=== PATIENT | male | born 1945 | race Caucasian/White ===

== ENCOUNTER 2020-06-23 17:50 | Inpatient (IN) ==
[2020-06-23] MEDS ORDERED: 0.9 % SODIUM CHLORIDE 1,000 ML IV ONE (18:04)
[2020-06-23] MEDS ORDERED: POTASSIUM CHLORIDE 20 MEQ in DEXTROSE 5% IN WATER 250 ML IV ONE (18:04)
[2020-06-23] MEDS ORDERED: POTASSIUM CHLORIDE 20 MEQ TABLET PO ONE (18:04)
--- NOTE | 2020-06-23 18:06 | Emergency Department Note ---
HPI General Chief complaint: Weakness Stated complaint: electrolye imbalances, frequent falls Time Seen by Provider: 06/23/20 17:55 Source: patient Mode of arrival: ambulatory Limitations: no limitations History of Present Illness HPI Narrative: Narrative: 74-year-old male presents the emergency department complaining of generalized weakness. Blanca Brewer with urology actually called us and let them know that the patient was coming here due to lab abnormalities. She said he had a low sodium as well as a low potassium and with the weakness felt like he need to be admitted. He was actually here about a week and a half ago was offered admission but actually declined and signed out AMA. He has discontinued it weaker and weaker. He had a Killian catheter placed 3 days ago secondary urinary retention which is normal for him to urology they said that his urine looks fine there is no signs of infection. Denying any other symptoms otherwise. Just generalized weakness including frequent falls. Says he has not lost consciousness does not believe he hit his head but he does take Plavix. Otherwise no other blood thinners. Related Data Home Medications Medication Instructions Recorded Confirmed albuterol sulfate 1 puff INH Q4-6HP PRN 12/27/14 06/23/20 atorvastatin 40 mg PO HS 12/29/14 06/23/20 cyanocobalamin (vitamin B-12) 500 mcg PO DAILY 12/29/14 06/23/20 fluticasone propionate 2 spray NS DAILY 12/29/14 06/23/20 mirtazapine 30 mg PO HS 12/29/14 06/23/20 acetaminophen 500 mg tablet 1,000 mg PO QID PRN 01/16/19 06/23/20 amitriptyline 100 mg tablet 100 mg PO QHS 01/16/19 06/23/20 aspirin 81 mg tablet,delayed 81 mg PO QDAY 01/16/19 06/23/20 release benztropine 0.5 mg tablet 0.5 mg PO BID 01/16/19 06/23/20 furosemide 20 mg tablet 20 mg PO QAM 01/16/19 06/23/20 hydrochlorothiazide 12.5 mg tablet 12.5 mg PO QAM tab 01/16/19 06/23/20 melatonin 3 mg capsule 6 mg PO HS cap 01/16/19 06/23/20 montelukast 10 mg tablet 10 mg PO QPM 01/16/19 06/23/20 multivitamin See Rx Instructions PO QDAY 01/16/19 06/23/20 pantoprazole 40 mg tablet,delayed 40 mg PO BID 01/16/19 06/23/20 release risperidone 3 mg tablet 3 mg PO QHS 01/16/19 06/23/20 sennosides 8.6 mg tablet 8.6 mg PO BID 01/16/19 06/23/20 tiotropium bromide 2.5 2 puff INHALATION QDAY 01/16/19 06/23/20 mcg/actuation mist for inhalation clopidogrel 75 mg tablet 75 mg PO QAM tab 03/27/19 06/23/20 pregabalin 100 mg capsule 100 mg PO TID 03/27/19 06/23/20 lisinopril 5 mg tablet 2.5 mg PO QAM tab 12/03/19 06/23/20 Previous Rx's Medication Instructions Recorded folic acid 1 mg PO DAILY #30 tab 01/07/15 methocarbamol 750 mg PO TIDP PRN #15 tab 01/05/19 miconazole nitrate 2 % topical 1 applic TOPICAL QDAY #57 g 02/28/19 cream miconazole nitrate 2 % topical 1 applic TOPICAL BID #30 g 12/05/19 cream albuterol sulfate 2.5 mg INHALATION TID PRN #180 ml 01/07/20 budesonide-formoterol HFA 160 2 puff INHALATION BID #10.2 g 01/07/20 mcg-4.5 mcg/actuation aerosol inhaler finasteride 5 mg tablet 5 mg PO QDAY #90 tab 03/19/20 tamsulosin 0.4 mg capsule 0.4 mg PO QHS #30 cap 06/19/20 Allergies Allergy/AdvReac Type Severity Reaction Status Date / Time aspirin [ASPIRIN] AdvReac Severe INTOLERANCE Verified 06/23/20 17:54 ONLY D/T ULCERS hydrocodone [HYDROCODONE] AdvReac Mild Sedation Verified 06/23/20 17:54 methadone [METHADONE] AdvReac Mild HALLUCINATI Verified 06/23/20 17:54 ONS morphine [MORPHINE] AdvReac Mild ITCHING Verified 06/23/20 17:54 oxycodone AdvReac Mild itchy Verified 06/23/20 17:54 Review of Systems ROS ROS Narrative: Narrative: All systems ED: reviewed and negative except as stated. PFSH Narrative Patient History Narrative: Narrative: Medical/Surgical/Family History All Active Problems (Updated 06/23/20 @ 19:04 by Yadiel Diaz DO) Acute hyponatremia (Acute) Weakness (Acute) Hypokalemia (Acute) Abnormal urinary stream (Acute) Urinary retention due to benign prostatic hyperplasia (Acute) General medical examination (Acute) Acute hypokalemia (Acute) Acute hypotension (Acute) Near syncope (Acute) BPH (benign prostatic hyperplasia) (Acute) Lung nodules (Chronic) Fracture of metacarpal (Acute) Nocturnal hypoxemia (Chronic) Dysphagia (Chronic) Gastroesophageal reflux disease (Chronic) Constipation (Chronic) Hyperlipidemia (Chronic) Cervical radiculopathy (Chronic) Hyponatremia (Acute) Acute exacerbation of chronic obstructive pulmonary disease (COPD) (Acute) Rectus sheath hematoma (Acute) 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 (Acute) [facility] (current) use of anticoagulants (Chronic) Leukocytosis (Chronic) Chronic anemia (Chronic) Generalized seizure (Acute) Schizophrenia (Chronic) Astigmatism (Chronic) Chronic pain (Chronic) Chronic post-traumatic stress disorder (PTSD) (Chronic) Chronic obstructive pulmonary disease (Chronic) Hemoptysis (Chronic) Duodenitis (Chronic) Barretts esophagus (Chronic) Diverticulosis (Chronic) Colon polyp (Chronic) Chronic rhinitis (Chronic) Abdominal aneurysm without mention of rupture (Chronic) Sacroiliitis (Chronic) Neuropathy (Chronic) Benign paroxysmal positional vertigo (Chronic) Tremor (Chronic) Low blood pressure (Chronic) Small bowel obstruction (Chronic) Ptosis (Chronic) Other after-cataract, not obscuring vision (Chronic) Benign hypertension (Chronic) Upper respiratory infection (Chronic) Knee joint pain (Chronic) Lumbar radiculopathy (Chronic) History of fall (Chronic) Nicotine dependence (Chronic) Dizziness (Chronic) 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) SOB (shortness of breath) on exertion (Chronic) Stroke (Chronic) CAD (coronary artery disease) (Chronic) Falls (Chronic) Hematuria (Chronic) Neck pain (Chronic) Urinary retention (Chronic) Hip bursitis, left (Chronic) Community acquired pneumonia (Chronic) Smoker (Chronic) Peptic ulcer disease (Chronic) 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) Acute on chronic respiratory failure with hypoxemia (Chronic) Severe sepsis (Chronic) Tobacco abuse disorder (Chronic) Falls frequently (Chronic) Weakness generalized (Chronic) Pneumonia (Chronic) Weakness of both lower extremities (Chronic) Sepsis (Chronic) Cervical spondylosis with myelopathy and radiculopathy (Chronic) 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) Elevated serum creatinine (Chronic) Cervical spinal stenosis (Chronic) Abnormal urine color (Chronic) UTI (urinary tract infection) (Chronic) Medical History (Updated 06/23/20 @ 19:04 by Yadiel Diaz DO) Abdominal aneurysm without mention of rupture Acute on chronic respiratory failure with hypoxemia Astigmatism Barretts esophagus Benign hypertension Benign paroxysmal positional vertigo CAD (coronary artery disease) Cervical radiculopathy Chronic anemia Chronic obstructive pulmonary disease Chronic pain Chronic post-traumatic stress disorder (PTSD) Chronic rhinitis Colon polyp Community acquired pneumonia Constipation COPD (chronic obstructive pulmonary disease) with chronic bronchitis Diverticulosis Dizziness Duodenitis Dysphagia Falls Falls frequently Gastroesophageal reflux disease Hematuria Hemoptysis Hip bursitis, left History of fall Hyperlipidemia Knee joint pain Leukocytosis [facility] (current) use of anticoagulants Low blood pressure Lumbar radiculopathy Lumbar radiculopathy Lung nodules Nodule is stable 1 year f/u due 10/2020 Neck pain Neuropathy Nicotine dependence Nocturnal hypoxemia Other after-cataract, not obscuring vision Peptic ulcer disease Pneumonia Ptosis Recurrent major depression in remission Sacroiliitis Schizophrenia Sepsis Severe sepsis Small bowel obstruction Smoker SOB (shortness of breath) on exertion Stroke Tobacco abuse disorder Tremor Upper respiratory infection Urinary retention Weakness generalized Weakness of both lower extremities Surgical History History of angioplasty stent History of cholecystectomy History of colonoscopy History of hand surgery Broke left hand History of surgery had stomach aneurysm History of tonsillectomy Family History Other No pertinent family history Social History Smoking Status: Current every day smoker Alcohol Intake Frequency: does not drink Substance Use: does not use Exam Narrative Narrative: Narrative: Vital signs noted General: Awake. Alert. No distress. Skin: Warm. Dry. No rash. HEENT: NCAT. PERRL. EOMI. No conjunctivitis. No nystagmus. No pharyngitis. Membranes moist. Neck: No PTP. Good ROM. No meningeal signs. No stridor. No thyromegaly. No JVD. Cardiovascular: RRR. No murmur. No rubs. No gallops. Respiratory: No respiratory distress. Breath sounds equal. Lungs clear. Gastrointestinal: Abdomen soft. No tenderness. No distention. Normal bowel sounds. No palpable organomegaly or masses. Back: No deformity. No CVAT. Musculoskeletal: No tenderness. No swelling. No erythema. No edema. Good peripheral pulses x 4 Lymphatic: No palpable adenopathy. Neurological: No focal neurological deficits observed. CN 2-12 are intact. General Limitations: no limitations Course Vital Signs Vital signs: Vital Signs Temperature 98.1 F 06/23/20 17:51 Pulse Rate 92 H 06/23/20 17:51 Respiratory Rate 20 06/23/20 17:51 Blood Pressure 108/62 06/23/20 17:51 Pulse Oximetry (%) 98 06/23/20 17:51 Temperature 98.1 F 06/23/20 17:51 Pulse Rate 92 H 06/23/20 17:51 Respiratory Rate 18 06/23/20 18:05 Blood Pressure 108/62 06/23/20 17:51 Pulse Oximetry (%) 98 06/23/20 17:51 [facility] MDM Narrative Medical decision making narrative: Narrative: Patient looks well on exam. Not see any acute deficits. EKG has no acute findings. Did review the labs that were done at 11:00 this afternoon showed a sodium of one twenty and a potassium of 2.8. I did replace his potassium with oral and IV and gave him 1 L of IV fluids to help with the decrease in sodium. He currently is not seizing. This is been a gradual decrease in the sodium this could be secondary to SIADH secondary to psychiatric meds with these history of schizophrenia or could just be further on weakness or could be due to his urinary retention problems. Patient did have a head CT done that was negative due to the falls. Based on these issues I think patient does need to be admitt ed so I spoke with Dr. Escobedo who agreed to admit the patient to their service. Patient is admitted in stable condition. Family is okay with the plan he is now okay with staying here in the hospital. EKG interpretation EKG is done at eighteen oh four interpreted by myself shows normal sinus rhythm rate of eighty-six, CA interval one seventy-two, QRS one oh five, QTc four ninety. There is no acute ST changes no acute T wave changes no signs of ischemia. No signs of hypertrophy, heart strain, heart block. No WPW/Brugada/HOCM. There are a few PVCs. Impression is normal sinus EKG with a few PVCs and no ischemia. Lab Data Result diagrams: 06/23/20 18:13 06/23/20 18:13 Labs: Lab Results 06/23/20 Range/Units 18:13 WBC 11.2 H (4.5-11.0) K/mcL RBC 3.72 L (4.50-5.90) M/mcL Hgb 9.5 L (13.5-16.5) g/dL Hct 28.7 L (41.0-55.0) % MCV 77.2 L (80.0-100.0) fL MCH 25.5 L (26.0-34.0) pg MCHC 33.1 (31.0-36.0) g/dL RDW 14.6 H (11.5-14.5) % Plt Count 359 (140-440) K/mcL MPV 9.6 (7.4-10.4) fL Neut % (Auto) 77.8 (38.0-78.0) % Lymph % (Auto) 13.5 L (15.0-49.0) % [place] % (Auto) 7.4 (1.0-12.0) % Eos % (Auto) 0.9 (0.0-7.0) % Baso % (Auto) 0.4 (0.0-2.0) % Lymph # (Auto) 1.51 (1.50-4.80) K/mcL [place] # (Auto) 0.83 (0.10-0.90) K/mcL Eos # (Auto) 0.10 (0.00-0.70) K/mcL Baso # (Auto) 0.05 (0.00-0.20) K/mcL Absolute Neutrophils 8.69 H (1.80-8.00) K/mcL Discharge Plan Patient/Caregiver Discharge Instructions Pt seen by CONSERVATION SPECIALIST/PA only: No Clinical Impression: Acute hyponatremia, Weakness, Hypokalemia Patient Disposition: Xfer As Inpt ([facility]) Condition: Fair Follow up with: Wolf Basurto PA-C [Primary Care Provider] - Prescriptions: No Action albuterol sulfate 2.5 mg /3 mL (0.083 %) solution for nebulization 2.5 mg INHALATION TID PRN (Reason: shortness of breath or wheezing) Qty: 180 RF: 2 budesonide-formoterol [Symbicort] 160-4.5 mcg/actuation HFA aerosol inhaler 2 puff INHALATION BID Qty: 10.2 RF: 6 tamsulosin 0.4 mg capsule 0.4 mg PO QHS Qty: 30 RF: 1 amitriptyline 100 mg tablet 100 mg tablet 100 mg PO QHS RF: 0 aspirin [Adult Low Dose Aspirin] 81 mg tablet,delayed release (DR/EC) 81 mg PO QDAY RF: 0 benztropine 0.5 mg tablet 0.5 mg PO BID RF: 0 furosemide 20 mg tablet 20 mg PO QAM RF: 0 hydrochlorothiazide 12.5 mg tablet 12.5 mg tablet 12.5 mg PO QAM RF: 0 melatonin 3 mg capsule 6 mg PO HS RF: 0 montelukast 10 mg tablet 10 mg PO QPM RF: 0 multivitamin See Rx Instructions PO QDAY RF: 0 pantoprazole 40 mg tablet,delayed release (DR/EC) 40 mg PO BID RF: 0 risperidone 3 mg tablet 3 mg PO QHS RF: 0 sennosides [Evac-U-Gen (sennosides)] 8.6 mg tablet 8.6 mg PO BID RF: 0 tiotropium bromide 2.5 mcg/actuation mist 2 puff INHALATION QDAY RF: 0 acetaminophen 500 mg tablet 1,000 mg PO QID PRN (Reason: Pain) RF: 0 clopidogrel 75 mg tablet 75 mg PO QAM RF: 0 pregabalin 100 mg capsule 100 mg PO TID RF: 0 lisinopril 5 mg tablet 2.5 mg PO QAM RF: 0 albuterol sulfate 1 PUFF inhaler 1 puff INH Q4-6HP PRN (Reason: Shortness Of Breath) RF: 0 atorvastatin 40 MG tablet 40 mg PO HS RF: 0 cyanocobalamin (vitamin B-12) 500 MCG tablet 500 mcg PO DAILY RF: 0 mirtazapine 30 MG tablet 30 mg PO HS RF: 0 fluticasone propionate 1 SPRAY spray,suspension 2 spray NS DAILY RF: 0 folic acid 1 MG tablet 1 mg PO DAILY Qty: 30 RF: 0 methocarbamol 750 MG tablet 750 mg PO TIDP PRN (Reason: Spasms) Qty: 15 RF: 0 miconazole nitrate [Antifungal Cream (miconazole)] 2 % cream 1 applic TOPICAL QDAY Qty: 57 RF: 0 miconazole nitrate [Baljit Antifungal] 2 % cream 1 applic TOPICAL BID Qty: 30 RF: 11 finasteride 5 mg tablet 5 mg PO QDAY Qty: 90 RF: 3
--- NOTE | 2020-06-23 18:42 | Cat Scan Report ---
CLINICAL INFORMATION: Trauma-fall. On anticoagulation COMPARISON: Head CT 12/27/2014 TECHNIQUE: 2.5 mm helical slices were obtained in the skull base to vertex. Following reconstruction, axial reformatted images were reviewed at bone and parenchymal windows. The exam was performed using radiation dose optimization techniques including, but not limited to, automated exposure control, adjustment of the mA and/or kV according to patient size and use of iterative reconstruction technique. FINDINGS: The ventricles, sulci, fissures, and cisterns are symmetrically enlarged bowel mild age-related atrophy no change.. No extra-axial fluid collections are identified. 12 mm remote lacunar infarct in the head of the right caudate nucleus and right deep right frontal white matter is again seen. Mild patchy chronic ischemic changes in the cerebral white matter typical for age.. There is no evidence of hemorrhage, mass effect, or edema. Bone windows show no osseous abnormality. IMPRESSION: Mild atrophy and patchy chronic ischemic changes in the cerebral white matter typical for age. 12 mm all lacunar infarct in the head of the right caudate nucleus and anterior limb of the right internal capsule-stable Interpreted and Authenticated by: Adrian Hartman 06/23/20
[2020-06-23 18:59] LABS: Basophils # (Auto) 0.05 K/mcL (0.00-0.20); Basophils % (Auto) 0.4 % (0.0-2.0); Eosinophils % (Auto) 0.9 % (0.0-7.0); Hematocrit 28.7 % (41.0-55.0); Hemoglobin 9.5 g/dL (13.5-16.5); Lymphocytes # (Auto) 1.51 K/mcL (1.50-4.80); Lymphocytes % (Auto) 13.5 % (15.0-49.0); Mean Cell Volume 77.2 fL (80.0-100.0); Mean Corpuscular HGB Conc 33.1 g/dL (31.0-36.0); Mean Platelet Volume 9.6 fL (7.4-10.4); Monocytes # (Auto) 0.83 K/mcL (0.10-0.90); Monocytes % (Auto) 7.4 % (1.0-12.0); Neutrophils % (Auto) 77.8 % (38.0-78.0); Platelet Count 359 K/mcL (140-440); RBC 3.72 M/mcL (4.50-5.90); Red Cell Distribution Width 14.6 % (11.5-14.5); WBC 11.2 K/mcL (4.5-11.0)
--- NOTE | 2020-06-23 19:09 | Internal Med History&Physical ---
HPI History of Present Illness Patient information: Note initiated : 06/23/20 at 7:09 pm Service Date, if different from initiated Date: [] Patient: Primo Chen 74 y/o M admitted on for electrolye imbalances, frequent falls. Chief Complaint: Weakness and fall History of present illness: Mr. Chen is a 74 year old M with a history of schizophrenia/HTN/HLD/BPH/neuropathy who presents to the ER following a fall this morning due to profound weakness. Patient was recently evaluated at emergency department on June 11 due to weakness/hypokalemia he was discharged and subsequently followed up with urology, Killian's catheter was placed for urine retention. He live at home with his daughter Kassie . He has noted progressive weakness since his visit at urology office. He receives help from home health services 3 times a week. He fell this morning after he slid off the bed hitting his forehead. He sustained abrasions. During initial work-up patient was found to be hyponatremic at 120, low potassium 2.8. Hospital service was consulted in light of profound weakness and high risk subsequent injuries and falls. At the time of evaluation no family members present. Patient is in good spirits and was able to answer most the questions. He denies recent sick contacts, fever, chills, diarrhea. He cannot attribute to specific reason for his aggressive weakness. He denies excessive free water intake, alcohol use, diarrhea or vomiting. He endorses to good appetite and eats 3 meals a day. Denies weight loss, shortness of breath, headache or unilateral weakness Review of systems 10 point review system was performed and is negative except for ones discussed above PFSH PFSH All Active Problems (Updated 06/23/20 @ 19:04 by Yadiel Diaz DO) Acute hyponatremia (Acute) Weakness (Acute) Hypokalemia (Acute) Abnormal urinary stream (Acute) Urinary retention due to benign prostatic hyperplasia (Acute) General medical examination (Acute) Acute hypokalemia (Acute) Acute hypotension (Acute) Near syncope (Acute) BPH (benign prostatic hyperplasia) (Acute) Lung nodules (Chronic) Fracture of metacarpal (Acute) Nocturnal hypoxemia (Chronic) Dysphagia (Chronic) Gastroesophageal reflux disease (Chronic) Constipation (Chronic) Hyperlipidemia (Chronic) Cervical radiculopathy (Chronic) Hyponatremia (Acute) Acute exacerbation of chronic obstructive pulmonary disease (COPD) (Acute) Rectus sheath hematoma (Acute) 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 (Acute) 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) Leukocytosis (Chronic) Chronic anemia (Chronic) Generalized seizure (Acute) Schizophrenia (Chronic) Astigmatism (Chronic) Chronic pain (Chronic) Chronic post-traumatic stress disorder (PTSD) (Chronic) Chronic obstructive pulmonary disease (Chronic) Hemoptysis (Chronic) Duodenitis (Chronic) Barretts esophagus (Chronic) Diverticulosis (Chronic) Colon polyp (Chronic) Chronic rhinitis (Chronic) Abdominal aneurysm without mention of rupture (Chronic) Sacroiliitis (Chronic) Neuropathy (Chronic) Benign paroxysmal positional vertigo (Chronic) Tremor (Chronic) Low blood pressure (Chronic) Small bowel obstruction (Chronic) Ptosis (Chronic) Other after-cataract, not obscuring vision (Chronic) Benign hypertension (Chronic) Upper respiratory infection (Chronic) Knee joint pain (Chronic) Lumbar radiculopathy (Chronic) History of fall (Chronic) Nicotine dependence (Chronic) Dizziness (Chronic) 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) SOB (shortness of breath) on exertion (Chronic) Stroke (Chronic) CAD (coronary artery disease) (Chronic) Falls (Chronic) Hematuria (Chronic) Neck pain (Chronic) Urinary retention (Chronic) Hip bursitis, left (Chronic) Community acquired pneumonia (Chronic) Smoker (Chronic) Peptic ulcer disease (Chronic) 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) Acute on chronic respiratory failure with hypoxemia (Chronic) Severe sepsis (Chronic) Tobacco abuse disorder (Chronic) Falls frequently (Chronic) Weakness generalized (Chronic) Pneumonia (Chronic) Weakness of both lower extremities (Chronic) Sepsis (Chronic) Cervical spondylosis with myelopathy and radiculopathy (Chronic) 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) Elevated serum creatinine (Chronic) Cervical spinal stenosis (Chronic) Abnormal urine color (Chronic) UTI (urinary tract infection) (Chronic) Medical History (Updated 06/23/20 @ 19:04 by Yadiel Diaz DO) Abdominal aneurysm without mention of rupture Acute on chronic respiratory failure with hypoxemia Astigmatism Barretts esophagus Benign hypertension Benign paroxysmal positional vertigo CAD (coronary artery disease) Cervical radiculopathy Chronic anemia Chronic obstructive pulmonary disease Chronic pain Chronic post-traumatic stress disorder (PTSD) Chronic rhinitis Colon polyp Community acquired pneumonia Constipation COPD (chronic obstructive pulmonary disease) with chronic bronchitis Diverticulosis Dizziness Duodenitis Dysphagia Falls Falls frequently Gastroesophageal reflux disease Hematuria Hemoptysis Hip bursitis, left History of fall Hyperlipidemia Knee joint pain Leukocytosis 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 Low blood pressure Lumbar radiculopathy Lumbar radiculopathy Lung nodules Nodule is stable 1 year f/u due 10/2020 Neck pain Neuropathy Nicotine dependence Nocturnal hypoxemia Other after-cataract, not obscuring vision Peptic ulcer disease Pneumonia Ptosis Recurrent major depression in remission Sacroiliitis Schizophrenia Sepsis Severe sepsis Small bowel obstruction Smoker SOB (shortness of breath) on exertion Stroke Tobacco abuse disorder Tremor Upper respiratory infection Urinary retention Weakness generalized Weakness of both lower extremities Surgical History History of angioplasty stent History of cholecystectomy History of colonoscopy History of hand surgery Broke left hand History of surgery had stomach aneurysm History of tonsillectomy Family History Other No pertinent family history Social History marital status: occupational status: retired and disabled smoking status: Current every day smoker tobacco type: cigarettes per day: 10 pack-years: 60 alcohol intake frequency: does not drink substance use type: does not use MEDS/ALLERGIES Home Medications and Allergies Home Medications Medication Instructions Recorded Confirmed Type albuterol sulfate 1 puff INH Q4-6HP PRN 12/27/14 06/23/20 History atorvastatin 40 mg PO HS 12/29/14 06/23/20 History cyanocobalamin (vitamin B-12) 500 mcg PO DAILY 12/29/14 06/23/20 History fluticasone propionate 2 spray NS DAILY 12/29/14 06/23/20 History mirtazapine 30 mg PO HS 12/29/14 06/23/20 History folic acid 1 mg PO DAILY #30 tab 01/07/15 06/23/20 Rx methocarbamol 750 mg PO TIDP PRN #15 tab 01/05/19 06/23/20 Rx acetaminophen 500 mg tablet 1,000 mg PO QID PRN 01/16/19 06/23/20 History amitriptyline 100 mg tablet 100 mg PO QHS 01/16/19 06/23/20 History aspirin 81 mg tablet,delayed 81 mg PO QDAY 01/16/19 06/23/20 History release benztropine 0.5 mg tablet 0.5 mg PO BID 01/16/19 06/23/20 History furosemide 20 mg tablet 20 mg PO QAM 01/16/19 06/23/20 History hydrochlorothiazide 12.5 mg tablet 12.5 mg PO QAM tab 01/16/19 06/23/20 History melatonin 3 mg capsule 6 mg PO HS cap 01/16/19 06/23/20 History montelukast 10 mg tablet 10 mg PO QPM 01/16/19 06/23/20 History multivitamin See Rx Instructions PO QDAY 01/16/19 06/23/20 History pantoprazole 40 mg tablet,delayed 40 mg PO BID 01/16/19 06/23/20 History release risperidone 3 mg tablet 3 mg PO QHS 01/16/19 06/23/20 History sennosides 8.6 mg tablet 8.6 mg PO BID 01/16/19 06/23/20 History tiotropium bromide 2.5 2 puff INHALATION QDAY 01/16/19 06/23/20 History mcg/actuation mist for inhalation clopidogrel 75 mg tablet 75 mg PO QAM tab 03/27/19 06/23/20 History lisinopril 5 mg tablet 2.5 mg PO QAM tab 12/03/19 06/23/20 History albuterol sulfate 2.5 mg INHALATION TID PRN #180 ml 01/07/20 06/23/20 Rx budesonide-formoterol HFA 160 2 puff INHALATION BID #10.2 g 01/07/20 06/23/20 Rx mcg-4.5 mcg/actuation aerosol inhaler finasteride 5 mg tablet 5 mg PO QDAY #90 tab 03/19/20 06/23/20 Rx tamsulosin 0.4 mg capsule 0.4 mg PO QHS #30 cap 06/19/20 06/23/20 Rx gabapentin 600 mg PO TID 06/23/20 06/23/20 History ibuprofen 400 mg PO TID 06/23/20 06/23/20 History levetiracetam [Keppra] 500 mg PO BID 06/23/20 06/23/20 History potassium chloride 10 meq PO QDAY 06/23/20 06/23/20 History Allergies Allergy/AdvReac Type Severity Reaction Status Date / Time aspirin [ASPIRIN] AdvReac Severe INTOLERANCE Verified 06/23/20 17:54 ONLY D/T ULCERS hydrocodone [HYDROCODONE] AdvReac Mild Sedation Verified 06/23/20 17:54 methadone [METHADONE] AdvReac Mild HALLUCINATI Verified 06/23/20 17:54 ONS morphine [MORPHINE] AdvReac Mild ITCHING Verified 06/23/20 17:54 oxycodone AdvReac Mild itchy Verified 06/23/20 17:54 EXAM Constitutional Vitals: Temp Pulse Resp BP Pulse Ox 98.1 F 81 18 107/54 94 06/23/20 17:51 06/23/20 19:01 06/23/20 19:01 06/23/20 19:01 06/23/20 19:01 Alert oriented Forehead abrasion, Oral cavity moist No ear nose discharge Eye movement symmetrical Neck supple no lymphadenopathy S1-S2 occasionally irregular Nonlabored breathing Nondistended nontender abdomen Killian's catheter draining clear urine Lower extremity no cyanosis clubbing or joint swelling Skin no suspicious lesion Psych anxious but alert cooperative Neuro normal higher function DATA Data Completed and Pending Labs: Labs from last 24 hours 06/23/20 06/23/20 06/23/20 18:13 18:13 18:13 WBC 11.2 H RBC 3.72 L Hgb 9.5 L Hct 28.7 L MCV 77.2 L MCH 25.5 L MCHC 33.1 RDW 14.6 H Plt Count 359 MPV 9.6 Neut % (Auto) 77.8 Lymph % (Auto) 13.5 L [place] % (Auto) 7.4 Eos % (Auto) 0.9 Baso % (Auto) 0.4 Lymph # (Auto) 1.51 [place] # (Auto) 0.83 Eos # (Auto) 0.10 Baso # (Auto) 0.05 Absolute Neutrophils 8.69 H Sodium Pending Potassium Pending Chloride Pending Carbon Dioxide Pending Anion Gap Pending BUN Pending Creatinine Pending GFR Calculation Pending Glucose Pending Calcium Pending Magnesium Pending Total Bilirubin Pending AST Pending ALT Pending Alkaline Phosphatase Pending Troponin T Pending Total Protein Pending Albumin Pending Globulin Pending Albumin/Globulin Ratio Pending A/P Narrative A/P Narrative: * Euvolemic hyponatremia secondary to thiazide use/poor solute intake. Check 4hr sodium check/urine osmolarity/gradual solute replacement/free water restriction * Profound weakness and falls-gait and safety eval/PT OT * Hypokalemia start replacement IV and p.o. * Low magnesium start oral IV replacement * History of BPH continue tamsulosin, finasteride, on Killian's catheter, follows up with urology * History of schizophrenia continue risperidone * History of COPD continue bronchodilators * Hypertension continue lisinopril/hydralazine as needed * History of CAD continue Plavix/statin/aspirin * Prophylaxis Heparin Plan * Inpatient admission * 4 hourly sodium check/urine and serum osmolarity * Aggressive electrolyte replacement as indicated * Pre-existing medical condition management home medications * PT OT/nutrition support * Case management coordinate SNF transfer Time Spent With Patient Time: Total time spent is greater than 50% in coordination of care (as documented) at patient's floor/unit and/or counseling patient:
[2020-06-23 19:30] LABS: ALT/SGPT 8 U/L (<40); AST/SGOT 16 U/L (<40); Albumin 3.7 gm/dL (3.2-5.2); Albumin/Globulin Ratio 1.2 (1.0-2.3); Alkaline Phosphatase 104 U/L (39-117); Bilirubin,Total 0.5 mg/dL (0.1-1.0); Blood Urea Nitrogen 14 mg/dL (8-23); Calcium 8.7 mg/dL (8.6-10.4); Carbon Dioxide 29 mmol/L (22-30); Chloride 79 mmol/L (96-108); Glomerular Filtration Rate 36; Glucose 159 mg/dL (70-105)
[2020-06-23] MEDS ORDERED: NEUTRA PHOS 1 PACKET PO PRN (19:52)
[2020-06-23] MEDS ORDERED: guaiFENesin/CODEINE 10 ML UDC PO PRN (19:52)
[2020-06-23] MEDS ORDERED: ONDANSETRON 4 MG ODT TABLET SL PRN (19:52)
[2020-06-23] MEDS ORDERED: BISACODYL 10 MG SUPP.RECT PR PRN (19:52)
[2020-06-23] MEDS ORDERED: POTASSIUM CHLORIDE 20 MEQ PACKET PO PRN (19:52)
[2020-06-23] MEDS ORDERED: hydrALAZINE 20 MG/ML VIAL IV PRN (19:52)
[2020-06-23] MEDS ORDERED: ACETAMINOPHEN 650 MG/65 ML BAG IV PRN (19:52)
[2020-06-23] MEDS ORDERED: METOPROLOL TARTRATE 5 MG/5 ML VIAL IV PRN (19:52)
[2020-06-23] MEDS ORDERED: POLYETHYLENE GLYCOL 3350 17 GM PACKET PO PRN (19:52)
[2020-06-23] MEDS ORDERED: MAGNESIUM SULFATE 2 GM/50 ML BAG IV PRN (19:52)
[2020-06-23] MEDS ORDERED: ONDANSETRON 4 MG/2 ML VIAL IV PRN (19:52)
[2020-06-23] MEDS ORDERED: 0.9 % SODIUM CHLORIDE 1,000 ML IV SCH (19:52)
[2020-06-23] MEDS ORDERED: POTASSIUM CHLORIDE 40 MEQ in DEXTROSE 5% IN WATER 500 ML IV PRN ×2 (19:52)
[2020-06-23] MEDS ORDERED: ACETAMINOPHEN 500 MG TABLET PO PRN (21:13)
[2020-06-23] MEDS ORDERED: METHOCARBAMOL 750 MG TABLET PO PRN (21:13)
[2020-06-23] MEDS ORDERED: ALBUTEROL SULFATE 2.5 MG/3 ML NEBULIZER INH PRN (21:13)
[2020-06-23] MEDS ORDERED: ALBUTEROL SULFATE 200 PUFF INHALER INH PRN (21:13)
[2020-06-23] MEDS: PANTOPRAZOLE 40 MG TABLET PO SCH (21:51)
[2020-06-23] MEDS: MELATONIN 3 MG TABLET PO PRN (22:05)
[2020-06-23] MEDS: ATORVASTATIN 40 MG TABLET PO SCH (22:05)
[2020-06-23] MEDS: HEPARIN 5,000 UNIT/ML VIAL SQ SCH (22:05)
[2020-06-23] MEDS: TAMSULOSIN 0.4 MG CAPSULE PO SCH (22:05)
[2020-06-23] MEDS: SENNOSIDES/DOCUSATE SODIUM 1 TAB TABLET PO SCH (22:05)
[2020-06-23] MEDS: DOCUSATE SODIUM 100 MG CAPSULE PO SCH (22:05)
[2020-06-23] MEDS: MONTELUKAST 10 MG TABLET PO SCH (22:05)
[2020-06-23] MEDS: risperiDONE 1 MG TABLET PO SCH (22:06)
[2020-06-23] MEDS: MIRTAZAPINE 15 MG TABLET PO SCH (22:06)
[2020-06-23] MEDS: AMITRIPTYLINE 25 MG TABLET PO SCH (22:06)
[2020-06-23] MEDS: BENZTROPINE 1 MG TABLET PO SCH (22:06)
[2020-06-23] MEDS: CYANOCOBALAMIN (VITAMIN B-12) 500 MCG TABLET PO SCH (22:06)
[2020-06-23] MEDS: levETIRAcetam 500 MG TABLET PO SCH (22:06)
[2020-06-23] MEDS: ACETAMINOPHEN 325 MG TABLET PO PRN (22:07)
[2020-06-23] MEDS: 0.9 % SODIUM CHLORIDE 10 ML SYRINGE IV SCH (22:09)
[2020-06-24 05:49] LABS: Basophils # (Auto) 0.03 K/mcL (0.00-0.20); Basophils % (Auto) 0.4 % (0.0-2.0); Eosinophils # (Auto) 0.21 K/mcL (0.00-0.70); Hematocrit 27.5 % (41.0-55.0); Lymphocytes # (Auto) 1.25 K/mcL (1.50-4.80); Lymphocytes % (Auto) 17.6 % (15.0-49.0); Mean Cell Volume 78.1 fL (80.0-100.0); Mean Corpuscular HGB Conc 32.7 g/dL (31.0-36.0); Mean Platelet Volume 9.7 fL (7.4-10.4); Monocytes # (Auto) 0.82 K/mcL (0.10-0.90); Monocytes % (Auto) 11.5 % (1.0-12.0); Neutrophils % (Auto) 67.5 % (38.0-78.0); Platelet Count 318 K/mcL (140-440); RBC 3.52 M/mcL (4.50-5.90); Red Cell Distribution Width 14.6 % (11.5-14.5); WBC 7.1 K/mcL (4.5-11.0)
[2020-06-24] MEDS: 0.9 % SODIUM CHLORIDE 10 ML SYRINGE IV SCH ×3 (05:55→22:50)
[2020-06-24 06:27] LABS: ALT/SGPT < 5 U/L (<40); AST/SGOT 13 U/L (<40); Albumin 3.1 gm/dL (3.2-5.2); Albumin/Globulin Ratio 1.1 (1.0-2.3); Alkaline Phosphatase 91 U/L (39-117); Bilirubin,Direct < 0.2 mg/dL (0-0.3); Bilirubin,Total 0.4 mg/dL (0.1-1.0); Blood Urea Nitrogen 12 mg/dL (8-23); Calcium 8.5 mg/dL (8.6-10.4); Carbon Dioxide 30 mmol/L (22-30); Chloride 92 mmol/L (96-108); Globulin 2.7 gm/dL (2.2-3.7); Glomerular Filtration Rate 54; Glucose 106 mg/dL (70-105); Lactate Dehydrogenase 126 U/L (135-225); Phosphorous 2.9 mg/dL (2.5-4.5); Triglycerides 156 mg/dL (<150); Uric Acid 9.8 mg/dL (2.5-8.0)
[2020-06-24] MEDS: PANTOPRAZOLE 40 MG TABLET PO SCH ×2 (08:05→16:31)
[2020-06-24] MEDS: POTASSIUM CHLORIDE 10 MEQ TABLET PO SCH (08:06)
[2020-06-24] MEDS: 0.45 % SODIUM CHLORIDE 1,000 ML IV SCH ×2 (08:08→22:48)
[2020-06-24] MEDS ORDERED: CYANOCOBALAMIN (VITAMIN B-12) 500 MCG TABLET PO SCH (09:00)
[2020-06-24] MEDS ORDERED: SENNOSIDES 1 TABLET PO SCH (09:00)
[2020-06-24] MEDS ORDERED: FOLIC ACID 1 MG TABLET PO SCH (09:00)
[2020-06-24] MEDS ORDERED: PREGABALIN 100 MG CAPSULE PO SCH (09:00)
[2020-06-24] MEDS: BENZTROPINE 1 MG TABLET PO SCH ×2 (09:10→20:35)
[2020-06-24] MEDS: ASPIRIN 81 MG TAB.CHEW PO SCH (09:10)
[2020-06-24] MEDS: HEPARIN 5,000 UNIT/ML VIAL SQ SCH ×2 (09:11→20:40)
[2020-06-24] MEDS: levETIRAcetam 500 MG TABLET PO SCH ×2 (09:11→20:35)
[2020-06-24] MEDS: FOLIC ACID 1 MG TABLET PO SCH (09:11)
[2020-06-24] MEDS: DOCUSATE SODIUM 100 MG CAPSULE PO SCH ×2 (09:11→20:41)
[2020-06-24] MEDS: FLUTICASONE PROPIONATE SPRAY.NAS NS SCH (09:11)
[2020-06-24] MEDS: FUROSEMIDE 20 MG TABLET PO SCH (09:11)
[2020-06-24] MEDS: BUDESONIDE FORMOTEROL INH SCH ×2 (09:12→20:41)
[2020-06-24] MEDS: FINASTERIDE 5 MG TABLET PO SCH (09:12)
[2020-06-24] MEDS: MULTIVIT,THER IRON,CA,FA & MIN 1 TABLET PO SCH (09:12)
[2020-06-24] MEDS: THIAMINE 100 MG TABLET PO SCH (09:12)
[2020-06-24] MEDS: TIOTROPIUM BROMIDE INH SCH (09:12)
[2020-06-24] MEDS: CLOPIDOGREL 75 MG TABLET PO SCH (09:12)
[2020-06-24] MEDS: ACTUATION MIST INH SCH (09:12)
[2020-06-24] MEDS: CYANOCOBALAMIN (VITAMIN B-12) 500 MCG TABLET PO SCH ×2 (09:12→20:39)
[2020-06-24] MEDS: LISINOPRIL 5 MG TABLET PO SCH (09:13)
[2020-06-24] MEDS: GABAPENTIN 300 MG CAPSULE PO SCH ×3 (09:41→20:38)
--- NOTE | 2020-06-24 10:42 | Internal Med Progress Note ---
SUBJECTIVE Subjective Patient information: Note initiated : 06/24/20 at 10:39 am Service Date, if different from initiated Date: [] Patient: Primo Chen 74 y/o M admitted on 06/23/20 for electrolye imbalances, frequent falls. Chief Complaint: [] Interval history: Mr. Chen is a 74 year old M with a history of schizophrenia/HTN/HLD/BPH/neuropathy who presents to the ER following a fall this morning due to profound weakness. Patient was recently evaluated at emergency department on June 11 due to weakness/hypokalemia he was discharged and subsequently followed up with urology, Killian's catheter was placed for urine retention. He live at home with his daughter Kassie . He has noted progressive weakness since his visit at urology office. He receives help from home health services 3 times a week. He fell this morning after he slid off the bed hitting his forehead. He sustained abrasions. During initial work-up patient was found to be hyponatremic at 120, low potassium 2.8. Hospital service was consulted in light of profound weakness and high risk subsequent injuries and falls. At the time of evaluation no family members present. Patient is in good spirits and was able to answer most the questions. He denies recent sick contacts, fever, chills, diarrhea. He cannot attribute to specific reason for his aggressive weakness. He denies excessive free water intake, alcohol use, diarrhea or vomiting. He endorses to good appet ite and eats 3 meals a day. Denies weight loss, shortness of breath, headache or unilateral weakness 06/24 -patient overnight doing well. On monitored bed. Sodium improving. Potassium 2.7 status post 80 mg replacement. No fever chills. Persistent weakness, ongoing physical therapy. No family at bedside. Tolerating diet. Transfer to medical floor once potassium over 3.5 Constitutional Vitals: Vital Signs Temp Pulse Resp BP Pulse Ox 97.4 F 80 24 H 117/78 96 06/24/20 08:01 06/24/20 10:18 06/24/20 10:18 06/24/20 10:18 06/24/20 10:18 Period Temp Pulse Resp BP Sys/Jerry Pulse Ox Last 24 Hr 97.4 F-98.2 F 71-92 12-31 91-136/43-78 92-99 Intake and Output 06/23/20 06/24/20 06/24/20 21:59 05:59 13:59 Intake Total 240 1310 798 Output Total 1150 1550 1025 Balance -910 -240 -227 Weight 87.997 kg Alert oriented Forehead abrasion No telemetry events Nonlabored breathing Intake & Output: Intake & Output 06/23/20 06/24/20 06/24/20 21:59 05:59 13:59 Intake Total 240 1310 798 Output Total 1150 1550 1025 Balance -910 -240 -227 Weight 87.997 kg Intake: IV 1310 558 Sodium Chloride 0.9% 1,000 ml @ 1000 558 50 mls/hr IV .Q20H MARY GRACE Rx#: [id number] Potassium Chloride 20 Meq In 260 Dextrose 5% in Water 250 ml @ 130 mls/hr IV ONCE ONE Rx#: [id number] Oral 240 240 Output: Urine Catheter Amount 1150 1550 1025 Other: Meal Dinner Percent of Meal Consumed 100% Feeding Ability Assist with Tray Set Up Urine Appearance Clear Clear Cloudy Uretheral (Killian) Clear Clear Urine Color Pale Pale Pale Uretheral (Killian) Pale Pale Urine Odor Normal Stool Size Small Stool Color Brown Stool Consistency Soft OBJ DATA Labs CBC & Chem 7: 06/24/20 04:12 06/24/20 08:00 Labs: Abnormal Lab Results 06/24/20 06/24/20 06/24/20 08:00 04:12 04:12 WBC RBC 3.52 L Hgb 9.0 L Hct 27.5 L MCV 78.1 L MCH 25.6 L RDW 14.6 H Lymph % (Auto) Lymph # (Auto) 1.25 L Absolute Neutrophils Sodium 130 L 130 L Potassium 2.7 L* Chloride 92 L Creatinine 1.3 H Glucose 106 H Uric Acid 9.8 H Calcium 8.5 L Magnesium Lactate Dehydrogenase 126 L Total Protein 5.8 L Albumin 3.1 L Triglycerides 156 H 06/24/20 06/23/20 06/23/20 00:15 20:08 18:13 WBC RBC Hgb Hct MCV MCH RDW Lymph % (Auto) Lymph # (Auto) Absolute Neutrophils Sodium 122 L 121 L 119 L* Potassium 2.4 L* Chloride 79 L Creatinine 1.8 H Glucose 159 H Uric Acid Calcium Magnesium 1.5 L Lactate Dehydrogenase Total Protein Albumin Triglycerides 06/23/20 18:13 WBC 11.2 H RBC 3.72 L Hgb 9.5 L Hct 28.7 L MCV 77.2 L MCH 25.5 L RDW 14.6 H Lymph % (Auto) 13.5 L Lymph # (Auto) Absolute Neutrophils 8.69 H Sodium Potassium Chloride Creatinine Glucose Uric Acid Calcium Magnesium Lactate Dehydrogenase Total Protein Albumin Triglycerides Meds: Medications Acetaminophen (Acetaminophen 325 Mg Tablet) 650 mg PO Q4-6HP PRN; Protocol PRN Reason: Per Pain Protocol/Fever > 101 Last Admin: 06/23/20 22:07 Dose: 650 mg Documented by: Albuterol Sulfate (Albuterol Sulfate 200 Puff Inhaler) 1 puff INH Q4-6HP PRN PRN Reason: Shortness Of Breath Albuterol Sulfate (Albuterol Sulfate 2.5 Mg/3 Ml Nebulizer) 2.5 mg INH TID PRN PRN Reason: shortness of breath or wheezing Last Admin: 06/23/20 21:58 Dose: 2.5 mg Documented by: Amitriptyline HCl (Amitriptyline 25 Mg Tablet) 100 mg PO QHS [facility] Last Admin: 06/23/20 22:06 Dose: 100 mg Documented by: Aspirin (Aspirin 81 Mg Tab.Chew) 81 mg PO QDAY [facility] Last Admin: 06/24/20 09:10 Dose: 81 mg Documented by: Atorvastatin Calcium (Atorvastatin 40 Mg Tablet) 40 mg PO [facility] Last Admin: 06/23/20 22:05 Dose: 40 mg Documented by: Benztropine Mesylate (Benztropine 1 Mg Tablet) 0.5 mg PO BID [facility] Last Admin: 06/24/20 09:10 Dose: 0.5 mg Documented by: Bisacodyl (Bisacodyl 10 Mg Supp.Rect) 10 mg NE Q2-3DAYS PRN PRN Reason: Constipation Clopidogrel Bisulfate (Clopidogrel 75 Mg Tablet) [facility] [place] Last Admin: 06/24/20 09:12 Dose: 75 mg Documented by: Cyanocobalamin (Cyanocobalamin (Vitamin B-12) 500 Mcg Tablet) 1,000 mcg PO BID [facility] Stop: 06/28/20 09:01 Last Admin: 06/24/20 09:12 Dose: 1,000 mcg Documented by: Docusate Sodium (Docusate Sodium 100 Mg Capsule) 100 mg PO BID [facility] Last Admin: 06/24/20 09:11 Dose: 100 mg Documented by: Finasteride (Finasteride 5 Mg Tablet) 5 mg PO QDAY [facility] Last Admin: 06/24/20 09:12 Dose: 5 mg Documented by: Fluticasone Propionate (Fluticasone Propionate [place]) 2 spray NS DAILY [facility] Last Admin: 06/24/20 09:11 Dose: Not Given Documented by: Folic Acid (Folic Acid 1 Mg Tablet) 1 mg PO DAILY [facility] Last Admin: 06/24/20 09:11 Dose: 1 mg Documented by: Furosemide (Furosemide 20 Mg Tablet) 20 mg PO QAM [facility] Last Admin: 06/24/20 09:11 Dose: 20 mg Documented by: Gabapentin (Gabapentin 300 Mg Capsule) 600 mg PO TID [facility] Last Admin: 06/24/20 09:41 Dose: 600 mg Documented by: Guaifenesin/Codeine Phosphate (Guaifenesin/Codeine 10 Ml Udc) 10 ml PO Q4HP PRN PRN Reason: Cough Heparin Sodium (Porcine) (Heparin 5,000 Unit/Ml Vial) 5,000 unit SQ Q12 [facility] Last Admin: 06/24/20 09:11 Dose: 5,000 unit Documented by: Hydralazine HCl (Hydralazine 20 Mg/Ml Vial) 10 mg IV Q4-6HP PRN PRN Reason: Hypertension Potassium Chloride 40 meq/ (Dextrose) 520 mls @ 130 mls/hr IV UD PRN PRN Reason: K+ = or < 3.5 Last Admin: 06/24/20 08:08 Dose: 130 mls/hr Documented by: Potassium Chloride 40 meq/ (Dextrose) 520 mls @ 130 mls/hr IV UD PRN PRN Reason: K+ = or < 3.5 Acetaminophen (Ofirmev) 650 mg in 65 mls @ 130 mls/hr IV Q6HP PRN; Protocol PRN Reason: Per Pain Protocol/Fever > 101 Magnesium Sulfate (Magnesium Sulfate) 2 gm in 50 mls @ 50 mls/hr IV UD PRN PRN Reason: MG = or < 1.7 Last Infusion: 06/23/20 22:09 Dose: Infused Documented by: Sodium Chloride (Sodium Chloride 0.45%) 1,000 mls @ 75 mls/hr IV .[id number] [facility] Last Admin: 06/24/20 08:08 Dose: 75 mls/hr Documented by: Iron Carb/Multivit/[place]/Folic Acid (Multivit,Ther Iron,Ca,Fa & Min 1 Tablet) 1 tab PO DAILY [facility] Last Admin: 06/24/20 09:12 Dose: 1 tab Documented by: Levetiracetam (Levetiracetam 500 Mg Tablet) 500 mg PO BID [facility] Last Admin: 06/24/20 09:11 Dose: 500 mg Documented by: Lisinopril (Lisinopril 5 Mg Tablet) 2.5 mg PO QAM [facility] Last Admin: 06/24/20 09:13 Dose: 2.5 mg Documented by: Melatonin (Melatonin 3 Mg Tablet) 3 mg PO HSP PRN PRN Reason: Insomnia Last Admin: 06/23/20 22:05 Dose: 3 mg Documented by: Methocarbamol (Methocarbamol 750 Mg Tablet) 750 mg PO TIDP PRN PRN Reason: Spasms Last Admin: 06/23/20 22:05 Dose: 750 mg Documented by: Metoprolol Tartrate (Metoprolol Tartrate 5 Mg/5 Ml Vial) 5 mg IV Q5M PRN PRN Reason: Heart Rate > 140 bpm Mirtazapine (Mirtazapine 15 Mg Tablet) 30 mg PO HS [facility] Last Admin: 06/23/20 22:06 Dose: 30 mg Documented by: Montelukast Sodium (Montelukast 10 Mg Tablet) 10 mg PO QPM [facility] Last Admin: 06/23/20 22:05 Dose: 10 mg Documented by: Ondansetron HCl (Ondansetron 4 Mg Odt Tablet) 4 mg SL Q4-6HP PRN; Protocol PRN Reason: Nausea And Vomiting Ondansetron HCl (Ondansetron 4 Mg/2 Ml Vial) 4 mg IV Q4-6HP PRN; Protocol PRN Reason: Nausea And Vomiting Pantoprazole Sodium (Pantoprazole 40 Mg Tablet) 40 mg PO BIDAC [facility] Last Admin: 06/24/20 08:05 Dose: 40 mg Documented by: Budesonide- Formoterol [ Symbicort] 160-4.5 Mcg/Act Inh 2 dose INH BID [facility] Last Admin: 06/24/20 09:12 Dose: Not Given Documented by: Tiotropium [place] 2 .5 Mcg/Actuation Mist) 2 dose INH QDAY [facility] Last Admin: 06/24/20 09:12 Dose: Not Given Documented by: Polyethylene Glycol (Polyethylene Glycol 3350 17 Gm Packet) 17 gm PO DAILYP PRN PRN Reason: Constipation Potassium Chloride (Potassium Chloride 20 Meq Packet) 40 meq PO DAILYP PRN PRN Reason: K+ < 3.5 Last Admin: 06/24/20 08:09 Dose: 40 meq Documented by: Potassium Chloride (Potassium Chloride 10 Meq Tablet) 10 meq PO QAC [facility] Last Admin: 06/24/20 08:06 Dose: Not Given Documented by: Potassium/Phosphorus/Sodium (Neutra Phos 1 Packet) 2 packet PO TID PRN PRN Reason: Phos <2.5 Risperidone (Risperidone 1 Mg Tablet) 3 mg PO QHS [facility] Last Admin: 06/23/20 22:06 Dose: 3 mg Documented by: Senna/Docusate Sodium (Sennosides/Docusate Sodium 1 Tab Tablet) 1 tab PO [facility] Last Admin: 06/23/20 22:05 Dose: 1 tab Documented by: Sodium Chloride (0.9 % Sodium Chloride 10 Ml Syringe) 10 ml IV Q8 [facility] Last Admin: 06/24/20 05:55 Dose: 10 ml Documented by: Tamsulosin HCl (Tamsulosin 0.4 Mg Capsule) 0.4 mg PO QHS [facility] Last Admin: 06/23/20 22:05 Dose: 0.4 mg Documented by: Thiamine HCl (Thiamine 100 Mg Tablet) 100 mg PO DAILY [facility] Last Admin: 06/24/20 09:12 Dose: 100 mg Documented by: A/P Narrative A/P Narrative: * Euvolemic hyponatremia secondary to thiazide use/poor solute intake. Clinically improving. Sodium at 130. * Profound weakness and falls-continue gait and safety eval/PT OT * Hypokalemia 2.7, IV and oral replacement as indicated, continue telemetry monitoring * Low magnesium improving with replacement * History of BPH continue tamsulosin, finasteride, on Killian's catheter, follows up with urology * History of schizophrenia continue risperidone * History of COPD continue bronchodilators * Hypertension continue lisinopril/hydralazine as needed * History of CAD continue Plavix/statin/aspirin * Prophylaxis Heparin Plan * Aggressive electrolyte replacement as indicated * Pre-existing medical condition management home medications * PT OT/nutrition support * Discharge coordination * Transfer to medical floor once potassium normalizes Time Spent With Patient Time: Total time spent is greater than 50% in coordination of care (as documented) at patient's floor/unit and/or counseling patient:
[2020-06-24] MEDS: AMITRIPTYLINE 25 MG TABLET PO SCH (20:30)
[2020-06-24] MEDS: SENNOSIDES/DOCUSATE SODIUM 1 TAB TABLET PO SCH (20:31)
[2020-06-24] MEDS: risperiDONE 1 MG TABLET PO SCH (20:32)
[2020-06-24] MEDS: MONTELUKAST 10 MG TABLET PO SCH (20:33)
[2020-06-24] MEDS: MELATONIN 3 MG TABLET PO PRN (20:35)
[2020-06-24] MEDS: ATORVASTATIN 40 MG TABLET PO SCH (20:37)
[2020-06-24] MEDS: TAMSULOSIN 0.4 MG CAPSULE PO SCH (20:37)
[2020-06-24] MEDS: MIRTAZAPINE 15 MG TABLET PO SCH (20:39)
[2020-06-24] MEDS: ACETAMINOPHEN 325 MG TABLET PO PRN (20:41)
[2020-06-24] MEDS ORDERED: MELATONIN 3 MG PO SCH (21:00)
[2020-06-25] MEDS: 0.45 % SODIUM CHLORIDE 1,000 ML IV SCH (03:08)
[2020-06-25] MEDS: 0.9 % SODIUM CHLORIDE 10 ML SYRINGE IV SCH (04:21)
--- NOTE | 2020-06-25 06:25 | XRay Report ---
CLINICAL INFORMATION: Dyspnea COMPARISON: 06/11/2020 TECHNIQUE: PA and Lateral views FINDINGS: The heart size, mediastinum and pulmonary vessels are unremarkable. The lungs are clear. There are no effusions. The bones and soft tissues are within normal limits. IMPRESSION: Normal chest. Interpreted and Authenticated by: Adrian Hartman 06/25/20
[2020-06-25 06:33] LABS: Basophils # (Auto) 0.08 K/mcL (0.00-0.20); Basophils % (Auto) 0.9 % (0.0-2.0); Eosinophils # (Auto) 0.37 K/mcL (0.00-0.70); Eosinophils % (Auto) 4.2 % (0.0-7.0); Lymphocytes # (Auto) 1.56 K/mcL (1.50-4.80); Lymphocytes % (Auto) 17.6 % (15.0-49.0); Mean Cell Volume 81.9 fL (80.0-100.0); Mean Platelet Volume 9.7 fL (7.4-10.4); Monocytes # (Auto) 0.78 K/mcL (0.10-0.90); Monocytes % (Auto) 8.8 % (1.0-12.0); Neutrophils % (Auto) 68.5 % (38.0-78.0); Platelet Count 344 K/mcL (140-440); RBC 3.54 M/mcL (4.50-5.90); Red Cell Distribution Width 14.8 % (11.5-14.5); WBC 8.9 K/mcL (4.5-11.0)
[2020-06-25 06:57] LABS: ALT/SGPT 6 U/L (<40); AST/SGOT 11 U/L (<40); Albumin/Globulin Ratio 1.1 (1.0-2.3); Alkaline Phosphatase 93 U/L (39-117); Bilirubin,Direct < 0.2 mg/dL (0-0.3); Bilirubin,Total 0.2 mg/dL (0.1-1.0); Blood Urea Nitrogen 10 mg/dL (8-23); Calcium 8.7 mg/dL (8.6-10.4); Carbon Dioxide 30 mmol/L (22-30); Chloride 100 mmol/L (96-108); Globulin 2.7 gm/dL (2.2-3.7); Glomerular Filtration Rate 59; Glucose 108 mg/dL (70-105); Lactate Dehydrogenase 140 U/L (135-225); Phosphorous 2.7 mg/dL (2.5-4.5); Triglycerides 157 mg/dL (<150); Uric Acid 8.6 mg/dL (2.5-8.0)
[2020-06-25] MEDS: PANTOPRAZOLE 40 MG TABLET PO SCH (07:40)
[2020-06-25] MEDS: DOCUSATE SODIUM 100 MG CAPSULE PO SCH (08:19)
[2020-06-25] MEDS: levETIRAcetam 500 MG TABLET PO SCH (08:20)
[2020-06-25] MEDS: MULTIVIT,THER IRON,CA,FA & MIN 1 TABLET PO SCH (08:20)
[2020-06-25] MEDS: POTASSIUM CHLORIDE 10 MEQ TABLET PO SCH (08:20)
[2020-06-25] MEDS: FUROSEMIDE 20 MG TABLET PO SCH (08:20)
[2020-06-25] MEDS: ASPIRIN 81 MG TAB.CHEW PO SCH (08:20)
[2020-06-25] MEDS: FINASTERIDE 5 MG TABLET PO SCH (08:20)
[2020-06-25] MEDS: CLOPIDOGREL 75 MG TABLET PO SCH (08:20)
[2020-06-25] MEDS: GABAPENTIN 300 MG CAPSULE PO SCH (08:22)
[2020-06-25] MEDS: CYANOCOBALAMIN (VITAMIN B-12) 500 MCG TABLET PO SCH (08:22)
[2020-06-25] MEDS: THIAMINE 100 MG TABLET PO SCH (08:22)
[2020-06-25] MEDS: FOLIC ACID 1 MG TABLET PO SCH (08:23)
[2020-06-25] MEDS: HEPARIN 5,000 UNIT/ML VIAL SQ SCH (08:23)
[2020-06-25] MEDS: BENZTROPINE 1 MG TABLET PO SCH (08:34)
[2020-06-25] MEDS: ACTUATION MIST INH SCH (09:31)
[2020-06-25] MEDS: FLUTICASONE PROPIONATE SPRAY.NAS NS SCH (09:31)
[2020-06-25] MEDS: TIOTROPIUM BROMIDE INH SCH (09:31)
[2020-06-25] MEDS: BUDESONIDE FORMOTEROL INH SCH (09:31)
[2020-06-25] MEDS: LISINOPRIL 5 MG TABLET PO SCH (10:11)
--- NOTE | 2020-06-25 10:52 | Discharge Summary ---
Discharge Provider Provider Patient information: Note initiated : 06/25/20 at 10:48 am Service Date, if different from initiated Date: [] Patient: Primo Chen 74 y/o M admitted on 06/23/20 for electrolye imbalances, frequent falls. Discharge diagnosis * Euvolemic hyponatremia secondary to thiazide use/poor solute intake. Clinically resolved. Sodium 135. * Profound weakness and falls-improved with nutrition support/therapies. Maintain fall risk * Hypokalemia -resolved with replacement * Low magnesium resolved * History of BPH continue tamsulosin, finasteride, on Killian's catheter, follows up with urology * History of schizophrenia stable on home dose risperidone * History of COPD managed on bronchodilators * Hypertension stable on home dose lisinopril/hydralazine as needed * History of CAD on Plavix/statin/aspirin Brief hospital course Mr. Chen is a 74 year old M with a history of schizophrenia/HTN/HLD/BPH/neuropathy who presents to the ER following a fall this morning due to profound weakness. Patient was recently evaluated at [facility] on June 11 due to weakness/hypokalemia he was discharged and subsequently followed up with urology, Killian's catheter was placed for urine retention. He live at home with his daughter Kassie . He has noted progressive weakness since his visit at urology office. He receives help from home health services 3 times a week. He fell this morning after he slid off the bed hitting his forehead. He sustained abrasions. During initial work-up patient was found to be hyponatremic at 120, low potassium 2.8. Hospital service was consulted in light of profound weakness and high risk subsequent injuries and falls. At the time of evaluation no family members present. Patient is in good spirits and was able to answer most the questions. He denies recent sick contacts, fever, chills, diarrhea. He cannot attribute to specific reason for his aggressive weakness. He denies excessive free water intake, alcohol use, diarrhea or vomiting. He endorses to good appetite and eats 3 meals a day. Denies weight loss, shortness of breath, headache or unilateral weakness 06/24 -patient overnight doing well. On monitored bed. Sodium improving. Potassium 2.7 status post 80 mg replacement. No fever chills. Persistent weakness, ongoing physical therapy. No family at bedside. Tolerating diet. Transfer to medical floor once potassium over 3.5 06/25-patient clinically better. No overnight events. Electrolytes normalized. Weakness improved. Able to ambulate without assistance. Requesting discharge. Ongoing nutrition support. Advise to continue follow-up with primary care physician/continuation support and maintain fall risk. Detailed discharge instructions as below. Potassium 3.5, sodium 135 Date of admission: 06/23/20 19:48 Discharge date: 06/25/20 Primary care physician: Wolf Basurto PA-C Consults: 06/23/20 Consult to Physician [CONS] Stat Comment: Consulting Provider: Odilon Daley Reason For Exam: Physician to Consult Discharge Meds Discharge Medications Home Medications albuterol sulfate 1 puff INH Q4-6HP PRN 12/27/14 [History Confirmed 06/23/20 Last Taken 10/20/19] atorvastatin 40 mg PO HS 12/29/14 [History Confirmed 06/23/20 Last Taken 10/20/19] cyanocobalamin (vitamin B-12) 500 mcg PO DAILY 12/29/14 [History Confirmed 06/23/20 Last Taken 10/20/19] fluticasone propionate 2 spray NS DAILY 12/29/14 [History Confirmed 06/23/20 Last Taken 10/20/19] mirtazapine 30 mg PO HS 12/29/14 [History Confirmed 06/23/20 Last Taken 10/20/19] folic acid 1 mg PO DAILY #30 tab 01/07/15 [Rx Confirmed 06/23/20 Last Taken 10/20/19] methocarbamol 750 mg PO TIDP PRN #15 tab 01/05/19 [Rx Confirmed 06/23/20 Last Taken 10/20/19] acetaminophen 500 mg tablet 1,000 mg PO QID PRN 01/16/19 [History Confirmed 06/23/20 Last Taken 10/20/19] amitriptyline 100 mg tablet 100 mg PO QHS 01/16/19 [History Confirmed 06/23/20 Last Taken 10/20/19] aspirin 81 mg tablet,delayed release 81 mg PO QDAY 01/16/19 [History Confirmed 06/23/20 Last Taken 10/20/19] benztropine 0.5 mg tablet 0.5 mg PO BID 01/16/19 [History Confirmed 06/23/20 Last Taken 10/20/19] furosemide 20 mg tablet 20 mg PO QAM 01/16/19 [History Confirmed 06/23/20 Last Taken 10/20/19] hydrochlorothiazide 12.5 mg tablet 12.5 mg PO QAM tab 01/16/19 [History Confirmed 06/23/20 Last Taken 10/20/19] melatonin 3 mg capsule 6 mg PO HS cap 01/16/19 [History Confirmed 06/23/20 Last Taken 10/20/19] montelukast 10 mg tablet 10 mg PO QPM 01/16/19 [History Confirmed 06/23/20 Last Taken 10/20/19] multivitamin See Rx Instructions PO QDAY 01/16/19 [History Confirmed 06/23/20 Last Taken 10/20/19] pantoprazole 40 mg tablet,delayed release 40 mg PO BID 01/16/19 [History Confirmed 06/23/20 Last Taken 10/20/19] risperidone 3 mg tablet 3 mg PO QHS 01/16/19 [History Confirmed 06/23/20 Last Taken 10/20/19] sennosides 8.6 mg tablet 8.6 mg PO BID 01/16/19 [History Confirmed 06/23/20 Last Taken 10/20/19] tiotropium bromide 2.5 mcg/actuation mist for inhalation 2 puff INHALATION QDAY 01/16/19 [History Confirmed 06/23/20 Last Taken 10/20/19] clopidogrel 75 mg tablet 75 mg PO QAM tab 03/27/19 [History Confirmed 06/23/20 Last Taken 10/15/19] lisinopril 5 mg tablet 2.5 mg PO QAM tab 12/03/19 [History Confirmed 06/23/20 Last Taken Unknown] albuterol sulfate 2.5 mg INHALATION TID PRN #180 ml 01/07/20 [Rx Confirmed 06/23/20 Last Taken Unknown] budesonide-formoterol HFA 160 mcg-4.5 mcg/actuation aerosol inhaler 2 puff INHALATION BID #10.2 g 01/07/20 [Rx Confirmed 06/23/20 Last Taken Unknown] finasteride 5 mg tablet 5 mg PO QDAY #90 tab 03/19/20 [Rx Confirmed 06/23/20 Last Taken Unknown] tamsulosin 0.4 mg capsule 0.4 mg PO QHS #30 cap 06/19/20 [Rx Confirmed 06/23/20 Last Taken Unknown] gabapentin 600 mg PO TID 06/23/20 [History Confirmed 06/23/20 Last Taken Unknown] ibuprofen 400 mg PO TID 06/23/20 [History Confirmed 06/23/20 Last Taken Unknown] levetiracetam [Keppra] 500 mg PO BID 06/23/20 [History Confirmed 06/23/20 Last Taken Unknown] potassium chloride 10 meq PO QDAY 06/23/20 [History Confirmed 06/23/20 Last Taken Unknown] COURSE Hospital Course Hospital course: , Discharge diagnosis: , Time Spent with Patient Time attestation: Total time spent providing and/or coordinating discharge services: EXAM Constitutional Vitals: Temp Pulse Resp BP Pulse Ox 98.1 F 90 17 110/73 93 06/25/20 08:01 06/25/20 10:15 06/25/20 08:01 06/25/20 10:15 06/25/20 10:15 Discharge Data Data Completed and Pending Labs on day of discharge: Labs from last 24 hours 06/25/20 06/25/20 06/24/20 04:48 04:48 16:01 WBC 8.9 RBC 3.54 L Hgb 9.0 L Hct 29.0 L MCV 81.9 MCH 25.4 L MCHC 31.0 RDW 14.8 H Plt Count 344 MPV 9.7 Neut % (Auto) 68.5 Lymph % (Auto) 17.6 Rolette % (Auto) 8.8 Eos % (Auto) 4.2 Baso % (Auto) 0.9 Lymph # (Auto) 1.56 Rolette # (Auto) 0.78 Eos # (Auto) 0.37 Baso # (Auto) 0.08 Absolute Neutrophils 6.06 Sodium 135 128 L Potassium 3.5 Chloride 100 Carbon Dioxide 30 Anion Gap 5.0 L BUN 10 Creatinine 1.2 GFR Calculation 59 Glucose 108 H Uric Acid 8.6 H Calcium 8.7 Phosphorus 2.7 Magnesium 2.1 Total Bilirubin 0.2 Direct Bilirubin < 0.2 GGT 22 AST 11 ALT 6 Alkaline Phosphatase 93 Lactate Dehydrogenase 140 Total Protein 5.7 L Albumin 3.0 L Globulin 2.7 Albumin/Globulin Ratio 1.1 Triglycerides 157 H 06/24/20 12:00 WBC RBC Hgb Hct MCV MCH MCHC RDW Plt Count MPV Neut % (Auto) Lymph % (Auto) Rolette % (Auto) Eos % (Auto) Baso % (Auto) Lymph # (Auto) Rolette # (Auto) Eos # (Auto) Baso # (Auto) Absolute Neutrophils Sodium 130 L Potassium Chloride Carbon Dioxide Anion Gap BUN Creatinine GFR Calculation Glucose Uric Acid Calcium Phosphorus Magnesium Total Bilirubin Direct Bilirubin GGT AST ALT Alkaline Phosphatase Lactate Dehydrogenase Total Protein Albumin Globulin Albumin/Globulin Ratio Triglycerides Discharge Plan Patient/Caregiver Discharge Instructions Activity: increase activity as tolerated Diet: Regular Diet Instructions: Lisinopril (By mouth), Hyponatremia (DC), Hypokalemia (DC), Killian Catheter Placement and Care (GEN), Fall Prevention for Older Adults (DC) Activity Restrictions/Additional Instructions: Follow-up PCP in 5 to 7 days; Your physician did not return a call to us before your discharge. They will contact you at home to schedule an appointment. If you do not hear from them within the next couple of days, please call to schedule an appointment. Your blood pressure has been running on the low side. Check your blood pressure at least once a day before taking your blood pressure medication. If your systolic blood pressure is less than 110 mm hg hold your blood pressure medication (Lisininopril) and contact your primary care provider. It is important for you to use your walker when you are up and about. Increase activity as tolerated. Your outpatient appointment is scheduled 06/26/20 at 0945 for your cystoscopy in [address]. This discharge packet is provided to you to help keep you informed about your care. We want to ensure you get everything you need when you go home. You will also be receiving a call from us in a few days to follow up with you and see how you are doing since your discharge. This gives us a chance to listen to any concerns you maybe experiencing since you were discharged or any additional needs you may have, as well as providing us feedback on your care experience. We strive to always provide excellent care and thank you for your feedback and for choosing [facility]. Prescriptions: Continued albuterol sulfate 2.5 mg /3 mL (0.083 %) solution for nebulization 2.5 mg INHALATION TID PRN (Reason: shortness of breath or wheezing) Qty: 180 RF: 2 budesonide-formoterol [Symbicort] 160-4.5 mcg/actuation HFA aerosol inhaler 2 puff INHALATION BID Qty: 10.2 RF: 6 tamsulosin 0.4 mg capsule 0.4 mg PO QHS Qty: 30 RF: 1 amitriptyline 100 mg tablet 100 mg tablet 100 mg PO QHS RF: 0 aspirin [Adult Low Dose Aspirin] 81 mg tablet,delayed release (DR/EC) 81 mg PO QDAY RF: 0 benztropine 0.5 mg tablet 0.5 mg PO BID RF: 0 furosemide 20 mg tablet 20 mg PO QAM RF: 0 hydrochlorothiazide 12.5 mg tablet 12.5 mg tablet 12.5 mg PO QAM RF: 0 melatonin 3 mg capsule 6 mg PO HS RF: 0 montelukast 10 mg tablet 10 mg PO QPM RF: 0 multivitamin See Rx Instructions PO QDAY RF: 0 pantoprazole 40 mg tablet,delayed release (DR/EC) 40 mg PO BID RF: 0 risperidone 3 mg tablet 3 mg PO QHS RF: 0 sennosides [Evac-U-Gen (sennosides)] 8.6 mg tablet 8.6 mg PO BID RF: 0 tiotropium bromide 2.5 mcg/actuation mist 2 puff INHALATION QDAY RF: 0 acetaminophen 500 mg tablet 1,000 mg PO QID PRN (Reason: Pain) RF: 0 clopidogrel 75 mg tablet 75 mg PO QAM RF: 0 lisinopril 5 mg tablet 2.5 mg PO QAM RF: 0 albuterol sulfate 1 PUFF inhaler 1 puff INH Q4-6HP PRN (Reason: Shortness Of Breath) RF: 0 atorvastatin 40 MG tablet 40 mg PO HS RF: 0 cyanocobalamin (vitamin B-12) 500 MCG tablet 500 mcg PO DAILY RF: 0 mirtazapine 30 MG tablet 30 mg PO HS RF: 0 fluticasone propionate 1 SPRAY spray,suspension 2 spray NS DAILY RF: 0 folic acid 1 MG tablet 1 mg PO DAILY Qty: 30 RF: 0 methocarbamol 750 MG tablet 750 mg PO TIDP PRN (Reason: Spasms) Qty: 15 RF: 0 potassium chloride 10 mEq Capsule, Extended Release 10 meq PO QDAY RF: 0 ibuprofen 400 mg Tablet 400 mg PO TID RF: 0 levetiracetam [Keppra] 500 mg Tablet 500 mg PO BID RF: 0 gabapentin 600 mg Tablet 600 mg PO TID RF: 0 finasteride 5 mg tablet 5 mg PO QDAY Qty: 90 RF: 3 Follow Up Plan Follow up with: Wolf Basurto PA-C [Primary Care Provider] - (They will contact you at home to schedule an appointment. If you do not hear from them in the next few days, please call to schedule.) Patient Disposition: Home, Self-Care Prognosis: Fair Rehab Potential: Fair I certify that the patient requires SNF services: No Overall status at discharge: patient is progressing back to baseline Discharge Orders: Discharge Order (Routine); Ordered 06/25/20 Ordered By: Odilon Daley
== END 2020-06-25 13:13 | disposition home or self-care (01) | DRG 641 ==
LOC: ED 17:50 → ICU 19:48
PROVIDERS: ADMIT Internal Medicine; ATTEND Internal Medicine

== ENCOUNTER 2020-07-07 10:08 | Inpatient (IN) ==
--- NOTE | 2020-07-07 11:10 | Emergency Department Note ---
Fall HPI General Chief Complaint: Trauma Stated Complaint: falls Time Seen by Provider: 07/07/20 11:04 Source: patient and EMS Mode of arrival: EMS History of Present Illness HPI Narrative: 74-year-old male presents via EMS after falling at home. Patient states he got dizzy and fell. Patient has a history of chronic dizziness. Patient did hit the back of his head. He also has pain in his neck and upper back. Denies loss of consciousness. Denies any chest pain or shortness of breath. Patient is on blood thinners. He has history of COPD. No recent fevers chills vomiting or diarrhea. Related Data Home Medications Medication Instructions Recorded Confirmed albuterol sulfate 1 puff INH Q4-6HP PRN 12/27/14 06/26/20 atorvastatin 40 mg PO HS 12/29/14 06/26/20 cyanocobalamin (vitamin B-12) 500 mcg PO DAILY 12/29/14 06/26/20 fluticasone propionate 2 spray NS DAILY 12/29/14 06/26/20 mirtazapine 30 mg PO HS 12/29/14 06/26/20 acetaminophen 500 mg tablet 1,000 mg PO QID PRN 01/16/19 06/26/20 amitriptyline 100 mg tablet 100 mg PO QHS 01/16/19 06/26/20 aspirin 81 mg tablet,delayed 81 mg PO QDAY 01/16/19 06/26/20 release benztropine 0.5 mg tablet 0.5 mg PO BID 01/16/19 06/26/20 furosemide 20 mg tablet 20 mg PO QAM 01/16/19 06/26/20 hydrochlorothiazide 12.5 mg tablet 12.5 mg PO QAM tab 01/16/19 06/26/20 melatonin 3 mg capsule 6 mg PO HS cap 01/16/19 06/26/20 montelukast 10 mg tablet 10 mg PO QPM 01/16/19 06/26/20 multivitamin See Rx Instructions PO QDAY 01/16/19 06/26/20 pantoprazole 40 mg tablet,delayed 40 mg PO BID 01/16/19 06/26/20 release risperidone 3 mg tablet 3 mg PO QHS 01/16/19 06/26/20 sennosides 8.6 mg tablet 8.6 mg PO BID 01/16/19 06/26/20 tiotropium bromide 2.5 2 puff INHALATION QDAY 01/16/19 06/26/20 mcg/actuation mist for inhalation clopidogrel 75 mg tablet 75 mg PO QAM tab 03/27/19 06/26/20 lisinopril 5 mg tablet 2.5 mg PO QAM tab 12/03/19 06/26/20 gabapentin 600 mg PO TID 06/23/20 06/26/20 ibuprofen 400 mg PO TID 06/23/20 06/26/20 levetiracetam [Keppra] 500 mg PO BID 06/23/20 06/26/20 potassium chloride 10 meq PO QDAY 06/23/20 06/26/20 Previous Rx's Medication Instructions Recorded folic acid 1 mg PO DAILY #30 tab 01/07/15 methocarbamol 750 mg PO TIDP PRN #15 tab 01/05/19 albuterol sulfate 2.5 mg INHALATION TID PRN #180 ml 01/07/20 budesonide-formoterol HFA 160 2 puff INHALATION BID #10.2 g 01/07/20 mcg-4.5 mcg/actuation aerosol inhaler finasteride 5 mg tablet 5 mg PO QDAY #90 tab 03/19/20 tamsulosin 0.4 mg capsule 0.4 mg PO QHS #30 cap 06/19/20 terazosin 1 mg capsule 1 mg PO QDAY #21 cap 06/26/20 Allergies Allergy/AdvReac Type Severity Reaction Status Date / Time aspirin [ASPIRIN] AdvReac Severe INTOLERANCE Verified 07/07/20 10:17 ONLY D/T ULCERS hydrocodone [HYDROCODONE] AdvReac Mild Sedation Verified 07/07/20 10:17 methadone [METHADONE] AdvReac Mild HALLUCINATI Verified 07/07/20 10:17 ONS morphine [MORPHINE] AdvReac Mild ITCHING Verified 07/07/20 10:17 oxycodone AdvReac Mild itchy Verified 07/07/20 10:17 Review of Systems ROS ROS Narrative: Narrative: All systems ED: reviewed and negative except as stated. Constitutional: Denies fever, chills and sweats Eyes: Denies vision change Cardiovascular: Denies chest pain Respiratory: Denies shortness of breath and cough Gastrointestinal: Denies abdominal pain, vomiting and diarrhea Genitourinary: Denies dysuria, frequency, urgency and hematuria Musculoskeletal: Reports back pain Integumentary: Denies rash Neurological: Reports dizziness Psychiatric: Denies anxiety, suicidal thoughts and homicidal thoughts Endocrine: Denies polydipsia and polyuria Hematological/Lymphatic: Denies easy bleeding and easy bruising PFSH Narrative Patient History Narrative: Narrative: Medical/Surgical/Family History All Active Problems (Updated 07/07/20 @ 13:40 by Varghese Traore MD) Hyponatremia (Acute) Fall (Acute) Head injury (Acute) Asthenia due to disease (Acute) UTI (urinary tract infection) (Acute) Hematuria (Acute) Acute hyponatremia (Acute) Weakness (Acute) Hypokalemia (Acute) Abnormal urinary stream (Acute) Urinary retention due to benign prostatic hyperplasia (Acute) General medical examination (Acute) Acute hypokalemia (Acute) Acute hypotension (Acute) Near syncope (Acute) BPH (benign prostatic hyperplasia) (Acute) Lung nodules (Chronic) Fracture of metacarpal (Acute) Nocturnal hypoxemia (Chronic) Dysphagia (Chronic) Gastroesophageal reflux disease (Chronic) Constipation (Chronic) Hyperlipidemia (Chronic) Cervical radiculopathy (Chronic) Hyponatremia (Acute) Acute exacerbation of chronic obstructive pulmonary disease (COPD) (Acute) Rectus sheath hematoma (Acute) 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 (Acute) alf (current) use of anticoagulants (Chronic) Leukocytosis (Chronic) Chronic anemia (Chronic) Generalized seizure (Acute) Schizophrenia (Chronic) Astigmatism (Chronic) Chronic pain (Chronic) Chronic post-traumatic stress disorder (PTSD) (Chronic) Chronic obstructive pulmonary disease (Chronic) Hemoptysis (Chronic) Duodenitis (Chronic) Barretts esophagus (Chronic) Diverticulosis (Chronic) Colon polyp (Chronic) Chronic rhinitis (Chronic) Abdominal aneurysm without mention of rupture (Chronic) Sacroiliitis (Chronic) Neuropathy (Chronic) Benign paroxysmal positional vertigo (Chronic) Tremor (Chronic) Low blood pressure (Chronic) Small bowel obstruction (Chronic) Ptosis (Chronic) Other after-cataract, not obscuring vision (Chronic) Benign hypertension (Chronic) Upper respiratory infection (Chronic) Knee joint pain (Chronic) Lumbar radiculopathy (Chronic) History of fall (Chronic) Nicotine dependence (Chronic) Dizziness (Chronic) 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) SOB (shortness of breath) on exertion (Chronic) Stroke (Chronic) CAD (coronary artery disease) (Chronic) Falls (Chronic) Hematuria (Chronic) Neck pain (Chronic) Urinary retention (Chronic) Hip bursitis, left (Chronic) Community acquired pneumonia (Chronic) Smoker (Chronic) Peptic ulcer disease (Chronic) 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) Acute on chronic respiratory failure with hypoxemia (Chronic) Severe sepsis (Chronic) Tobacco abuse disorder (Chronic) Falls frequently (Chronic) Weakness generalized (Chronic) Pneumonia (Chronic) Weakness of both lower extremities (Chronic) Sepsis (Chronic) Cervical spondylosis with myelopathy and radiculopathy (Chronic) 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) Elevated serum creatinine (Chronic) Cervical spinal stenosis (Chronic) Abnormal urine color (Chronic) UTI (urinary tract infection) (Chronic) Medical History Abdominal aneurysm without mention of rupture Acute on chronic respiratory failure with hypoxemia Astigmatism Barretts esophagus Benign hypertension Benign paroxysmal positional vertigo CAD (coronary artery disease) Cervical radiculopathy Chronic anemia Chronic obstructive pulmonary disease Chronic pain Chronic post-traumatic stress disorder (PTSD) Chronic rhinitis Colon polyp Community acquired pneumonia Constipation COPD (chronic obstructive pulmonary disease) with chronic bronchitis Diverticulosis Dizziness Duodenitis Dysphagia Falls Falls frequently Gastroesophageal reflux disease Hematuria Hematuria Hemoptysis Hip bursitis, left History of fall Hyperlipidemia Knee joint pain Leukocytosis 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) use of anticoagulants Low blood pressure Lumbar radiculopathy Lumbar radiculopathy Lung nodules Nodule is stable 1 year f/u due 10/2020 Neck pain Neuropathy Nicotine dependence Nocturnal hypoxemia Other after-cataract, not obscuring vision Peptic ulcer disease Pneumonia Ptosis Recurrent major depression in remission Sacroiliitis Schizophrenia Sepsis Severe sepsis Small bowel obstruction Smoker SOB (shortness of breath) on exertion Stroke Tobacco abuse disorder Tremor Upper respiratory infection Urinary retention Weakness generalized Weakness of both lower extremities Surgical History History of angioplasty stent History of cholecystectomy History of colonoscopy History of hand surgery Broke left hand History of surgery had stomach aneurysm History of tonsillectomy Family History Other No pertinent family history Social History Smoking Status: Current every day smoker Alcohol Intake Frequency: does not drink Substance Use: does not use Exam Narrative Narrative: General: Awake alert, no acute distress HEENT: Normocephalic there is an abrasion soft tissue welling posterior scalp, PERRLA, EOMI, oral mucosa moist, pharynx clear Neck: there is tenderness in the posterior cervical midline spine Lungs: Breathing unlabored, clear bilateral breath sounds Cardiac: Regular rhythm, normal distal pulses, GI: Soft nontender nondistended normoactive bowel sounds no guarding no rebound Musculoskeletal: No deformity, no swelling, full painless range of motion all chan ints Neuro: GCS 15, awake alert cranial nerves II through XII grossly intact, no focal motor or sensory deficit Back: upper midline thoracic spine, no tenderness in the thoracic spine Psych: Cooperative, normal mood and affect Skin: Warm, dry, no ecchymosis, no abrasions Course Consultations Consultation #1: Case discussed with Dr. Grewal who agrees to see the patient here in the emergency department and admit him to the hospital. Time: 13:40 Vital Signs Vital signs: Vital Signs Pulse Rate 80 07/07/20 10:09 Respiratory Rate 16 07/07/20 10:09 Blood Pressure 117/72 07/07/20 10:09 Pulse Oximetry (%) 97 07/07/20 10:09 Temperature 97.6 F 07/07/20 10:12 Pulse Rate 85 07/07/20 14:01 Respiratory Rate 21 07/07/20 14:01 Blood Pressure 111/63 07/07/20 14:01 Pulse Oximetry (%) 96 07/07/20 14:01 [facility] Narrative Medical decision making narrative: 74-year-old male presents after a fall this morning. States he was dizzy. Was recently discharged on 25 June after being admitted with generalized weakness and hyponatremia. Killian catheter for urinary retention. Patient did hit his head is complaining of neck pain and upper back pain. CT of the head cervical spine and chest showed no acute traumatic injuries. Labs were remarkable for white count 13.5 hemoglobin 10.2 platelets 549 sodium 124 potassium 3.1 chloride 85 and creatinine 1.5. Urinalysis which is also Killian catheter specimen does show is positive leukocyte esterase, there are some white cells and small amount of bacteria. Differential Diagnosis Differential Diagnosis: Electrolyte abnormality, dysrhythmia, traumatic head neck or back injury, Lab Data Result diagrams: 07/07/20 11:49 07/07/20 11:49 Labs: Lab Results 07/07/20 07/07/20 07/07/20 Range/Units 11:20 11:49 11:49 WBC 13.5 H (4.5-11.0) K/mcL RBC 3.96 L (4.50-5.90) M/mcL Hgb 10.2 L (13.5-16.5) g/dL Hct 31.4 L (41.0-55.0) % MCV 79.3 L (80.0-100.0) fL MCH 25.8 L (26.0-34.0) pg MCHC 32.5 (31.0-36.0) g/dL RDW 15.9 H (11.5-14.5) % Plt Count 549 H (140-440) K/mcL MPV 8.9 (7.4-10.4) fL Seg Neutrophils % 85 H (38-78) % Lymphocytes % 10 L (15-49) % Monocytes % (Manual) 5 (1-12) % Platelet Estimate Increased A (Normal) RBC Morphology Abnormal A (Normal) Microcytosis Few A (None Seen) PT 13.7 (11.9-14.5) sec INR 1.0 (0.9-1.1) APTT 33.7 (20.0-37.0) sec Sodium (133-145) mmol/L Potassium (3.3-5.1) mmol/L Chloride (96-108) mmol/L Carbon Dioxide (22-30) mmol/L Anion Gap (8.0-16.0) BUN (8-23) mg/dL Creatinine (0.7-1.2) mg/dL GFR Calculation Glucose (70-105) mg/dL Calcium (8.6-10.4) mg/dL Total Bilirubin (0.1-1.0) mg/dL AST (<40) U/L ALT (<40) U/L Alkaline Phosphatase (39-117) U/L Troponin T (<0.03) ng/mL Total Protein (5.9-8.4) gm/dL Albumin (3.2-5.2) gm/dL Globulin (2.2-3.7) gm/dL Albumin/Globulin Ratio (1.0-2.3) Urine Color Yellow Urine Appearance Hazy A (Clear) Urine pH 7.0 (5.0-9.0) Ur Specific [place] 1.005 (1.000-1.035) Urine Protein Neg (Negative) mg/dL Urine Glucose (UA) Neg (Negative) mg/dL Urine Ketones Neg (Negative) mg/dL Urine Occult Blood 0.20 (Negative) mg/dL Urine Nitrate Neg (Negative) Urine Bilirubin Neg (Negative) mg/dL Urine Urobilinogen Neg mg/dL Ur Leukocyte Esterase 500 A (Negative) /ug Urine RBC 26 H (0-3) /hpf Urine WBC 39 H (0-4) /hpf Ur Squamous Epith Cells 0 (0-4) /hpf Urine Bacteria Few A (0) /hpf Hyaline Casts 3 H (0-2) /lph Ur Culture Indicated? yes 07/07/20 07/07/20 Range/Units 11:49 11:49 WBC (4.5-11.0) K/mcL RBC (4.50-5.90) M/mcL Hgb (13.5-16.5) g/dL Hct (41.0-55.0) % MCV (80.0-100.0) fL MCH (26.0-34.0) pg MCHC (31.0-36.0) g/dL RDW (11.5-14.5) % Plt Count (140-440) K/mcL MPV (7.4-10.4) fL Seg Neutrophils % (38-78) % Lymphocytes % (15-49) % Monocytes % (Manual) (1-12) % Platelet Estimate (Normal) RBC Morphology (Normal) Microcytosis (None Seen) PT (11.9-14.5) sec INR (0.9-1.1) APTT (20.0-37.0) sec Sodium 124 L (133-145) mmol/L Potassium 3.1 L (3.3-5.1) mmol/L Chloride 85 L (96-108) mmol/L Carbon Dioxide 28 (22-30) mmol/L Anion Gap 11.0 (8.0-16.0) BUN 16 (8-23) mg/dL Creatinine 1.5 H (0.7-1.2) mg/dL GFR Calculation 45 Glucose 100 (70-105) mg/dL Calcium 10.1 (8.6-10.4) mg/dL Total Bilirubin 0.4 (0.1-1.0) mg/dL AST 19 (<40) U/L ALT 10 (<40) U/L Alkaline Phosphatase 118 H (39-117) U/L Troponin T < 0.01 (<0.03) ng/mL Total Protein 7.1 (5.9-8.4) gm/dL Albumin 3.5 (3.2-5.2) gm/dL Globulin 3.6 (2.2-3.7) gm/dL Albumin/Globulin Ratio 1.0 (1.0-2.3) Urine Color Urine Appearance (Clear) Urine pH (5.0-9.0) Ur Specific [place] (1.000-1.035) Urine Protein (Negative) mg/dL Urine Glucose (UA) (Negative) mg/dL Urine Ketones (Negative) mg/dL Urine Occult Blood (Negative) mg/dL Urine Nitrate (Negative) Urine Bilirubin (Negative) mg/dL Urine Urobilinogen mg/dL Ur Leukocyte Esterase (Negative) /ug Urine RBC (0-3) /hpf Urine WBC (0-4) /hpf Ur Squamous Epith Cells (0-4) /hpf Urine Bacteria (0) /hpf Hyaline Casts (0-2) /lph Ur Culture Indicated? ED POC Tests ED POC Tests: MAISHA - SARS Antigen Negative EKG Data EKG #1: EKG attestation: Yes I reviewed and interpreted this EKG. and Yes There are no EKG findings of acute coronary syndrome EKG results narrative: EKG performed at 1020 shows sinus rhythm rate of 83 normal axis infrequent PVC nonspecific ST changes early R wave progression Discharge Plan Patient/Caregiver Discharge Instructions Pt seen by APPLIQUER/PA only: No Clinical Impression: Hypokalemia, Hyponatremia, Fall, Head injury, Asthenia due to disease, UTI (urinary tract infection) Patient Disposition: Xfer As Inpt ([facility]) Follow up with: Wolf Basurto PA-C [Primary Care Provider] - Prescriptions: No Action albuterol sulfate 2.5 mg /3 mL (0.083 %) solution for nebulization 2.5 mg INHALATION TID PRN (Reason: shortness of breath or wheezing) Qty: 180 RF: 2 budesonide-formoterol [Symbicort] 160-4.5 mcg/actuation HFA aerosol inhaler 2 puff INHALATION BID Qty: 10.2 RF: 6 tamsulosin 0.4 mg capsule 0.4 mg PO QHS Qty: 30 RF: 1 amitriptyline 100 mg tablet 100 mg tablet 100 mg PO QHS RF: 0 aspirin [Adult Low Dose Aspirin] 81 mg tablet,delayed release (DR/EC) 81 mg PO QDAY RF: 0 benztropine 0.5 mg tablet 0.5 mg PO BID RF: 0 furosemide 20 mg tablet 20 mg PO QAM RF: 0 hydrochlorothiazide 12.5 mg tablet 12.5 mg tablet 12.5 mg PO QAM RF: 0 melatonin 3 mg capsule 6 mg PO HS RF: 0 montelukast 10 mg tablet 10 mg PO QPM RF: 0 multivitamin See Rx Instructions PO QDAY RF: 0 pantoprazole 40 mg tablet,delayed release (DR/EC) 40 mg PO BID RF: 0 risperidone 3 mg tablet 3 mg PO QHS RF: 0 sennosides [Evac-U-Gen (sennosides)] 8.6 mg tablet 8.6 mg PO BID RF: 0 tiotropium bromide 2.5 mcg/actuation mist 2 puff INHALATION QDAY RF: 0 acetaminophen 500 mg tablet 1,000 mg PO QID PRN (Reason: Pain) RF: 0 clopidogrel 75 mg tablet 75 mg PO QAM RF: 0 lisinopril 5 mg tablet 2.5 mg PO QAM RF: 0 albuterol sulfate 1 PUFF inhaler 1 puff INH Q4-6HP PRN (Reason: Shortness Of Breath) RF: 0 atorvastatin 40 MG tablet 40 mg PO HS RF: 0 cyanocobalamin (vitamin B-12) 500 MCG tablet 500 mcg PO DAILY RF: 0 mirtazapine 30 MG tablet 30 mg PO HS RF: 0 fluticasone propionate 1 SPRAY spray,suspension 2 spray NS DAILY RF: 0 folic acid 1 MG tablet 1 mg PO DAILY Qty: 30 RF: 0 methocarbamol 750 MG tablet 750 mg PO TIDP PRN (Reason: Spasms) Qty: 15 RF: 0 potassium chloride 10 mEq Capsule, Extended Release 10 meq PO QDAY RF: 0 ibuprofen 400 mg Tablet 400 mg PO TID RF: 0 levetiracetam [Keppra] 500 mg Tablet 500 mg PO BID RF: 0 gabapentin 600 mg Tablet 600 mg PO TID RF: 0 finasteride 5 mg tablet 5 mg PO QDAY Qty: 90 RF: 3 terazosin 1 mg capsule 1 mg PO QDAY Qty: 21 RF: 0
--- NOTE | 2020-07-07 11:58 | Cat Scan Report ---
CLINICAL INFORMATION: Trauma COMPARISON: Head CT 06/23/2020. TECHNIQUE: 2.5 mm helical slices were obtained in the skull base to vertex. Following reconstruction, axial reformatted images were reviewed at bone and parenchymal windows. The exam was performed using radiation dose optimization techniques including, but not limited to, automated exposure control, adjustment of the mA and/or kV according to patient size and use of iterative reconstruction technique. FINDINGS: The ventricles, sulci, fissures, and cisterns are symmetrically enlarged patible with mild age-related atrophy no change.. No extra-axial fluid collections are identified. 12 mm remote lacunar infarct in the head of the right caudate nucleus and right deep right frontal white matter is again seen. Mild patchy chronic ischemic changes in the cerebral white matter are typical for age.. There is no evidence of hemorrhage, mass effect, or edema. Bone windows show no osseous abnormality. IMPRESSION: Mild atrophy and patchy chronic ischemic changes in the cerebral white matter-typical for age. 12 mm old lacunar infarct in the head of the right caudate nucleus and anterior limb of the right internal capsule-stable. No intracerebral hemorrhage or other acute finding . Interpreted and Authenticated by: Adrian Hartman 07/07/20
--- NOTE | 2020-07-07 12:07 | Cat Scan Report ---
CLINICAL INFORMATION: Trauma COMPARISON: Cervical spine CT 01/05/2019 TECHNIQUE: 0.625 mm helical slices were obtained from the skull base through the superior T2 end plate, and following reconstruction, 2.5 mm sagittal, coronal and axial reformations were then processed. The exam was reviewed at bone and soft tissue windows. The exam was performed using radiation dose optimization techniques including, but not limited to, automated exposure control, adjustment of the mA and/or kV according to patient size and use of iterative reconstruction technique. FINDINGS: The sagittal and coronal reformatted images show cervical spine is normal in curvature and alignment. No fracture or other focal osseous abnormality identified. The cervical cord is normal in contour and caliber without hemorrhage or other abnormality. Scattered mildly enlarged deep cervical lymph nodes ranging up to 17 mm within the right parotid gland are unchanged from the 2019 CT. They should be considered benign reactive lymph nodes.No significant soft tissue abnormality. The C2-3 disc level is normal. At C3-4, mild broad disc protrusion with right-sided asymmetry results in moderate right IV foraminal narrowing and impingement of the exiting right C4 nerve root At C4-5, mild broad disc protrusion minimally impinges the anterior thecal sac At C5-6, moderate broad disc spur complex results in moderate central canal severe left and moderate right lateral recess/ IV foraminal narrowing. There is impingement of the exiting C6 nerve roots. Slight progression At C6-7, mild broad disc protrusion results in mild anterior thecal sac impingement C7-T1 disc level is normal. IMPRESSION: 1. No fracture or post traumatic change. 2. Multilevel degeneration, most prominent C5-6, as described. 3. Scattered mildly enlarged deep cervical lymph nodes are unchanged from 2019. This is consistent with benign reactive adenopathy Interpreted and Authenticated by: Adrian Hartman 07/07/20
--- NOTE | 2020-07-07 12:18 | Cat Scan Report ---
CLINICAL INFORMATION: Trauma COMPARISON: Chest CT 05/23/2014 and 11/25/2019 TECHNIQUE: 0.625 mm axial slices were obtained from the lung apices through the bases without intravenous contrast. 2.5 mm Sagittal, coronal and axial reformatted images were processed and reviewed at bone, lung and soft tissue windows. 7 mm axial MIP images were also reconstructed to optimize pulmonary nodule detection.The exam was performed using radiation dose optimization techniques including, but not limited to, automated exposure control, adjustment of the mA and/or kV according to patient size and use of iterative reconstruction technique. FINDINGS: Pulmonary parenchymal windows show a 5 mm nodule in the posterior basilar segment of the left lower lobe on image 85. This been stable since 2014. No other nodules and no infiltrates. Lung volumes are mildly elevated with mild wall thickening of the bronchi compatible underlying chronic bronchitis. There is been no change. Minimal scattered scarring seen in the periphery of both mid and lower lungs. There is no evidence of hemothorax or pneumothorax. Mediastinal windows show the noncontrast thoracic aorta and pulmonary arteries to be normal in diameter. The heart is normal in size. Extraordinarily heavy calcific plaque is seen within all the coronary arteries. Small pericardial effusion anteriorly show slight increase. There is no adenopathy in the mediastinal hilar or axillary regions. No hemorrhage. Esophagus is grossly normal. The thyroid is unremarkable. Bone windows show no fracture or other osseous abnormality in the thoracic region. Images should the superior abdomen show no abnormality. IMPRESSION: 1. No acute posttraumatic change. 2. Mild chronic bronchitis-stable. 3. 5 mm nodule posterior greater segment left lower lobe stable since 2014. This should be considered benign granuloma. No evidence of malignancy. 4. Extremely heavy calcific plaque in the coronary arteries no change 5. Small pericardial effusion anteriorly slight increase Interpreted and Authenticated by: Adrian Hartman 07/07/20
[2020-07-07 12:24] LABS: Hematocrit 31.4 % (41.0-55.0); Hemoglobin 10.2 g/dL (13.5-16.5); Mean Cell Volume 79.3 fL (80.0-100.0); Mean Corpuscular HGB Conc 32.5 g/dL (31.0-36.0); Mean Platelet Volume 8.9 fL (7.4-10.4); Platelet Count 549 K/mcL (140-440); RBC 3.96 M/mcL (4.50-5.90); Red Cell Distribution Width 15.9 % (11.5-14.5); WBC 13.5 K/mcL (4.5-11.0)
[2020-07-07 12:33] LABS: Appearance,Urine HAZY (Clear); Bacteria,Urine FEW /hpf (0); Bilirubin,Urine NEG (Negative); Color,Urine YELLOW; Culture Indicated,Urine yes; Glucose,Urine (UA) NEG (Negative); Ketones,Urine NEG (Negative); Leukocyte Esterase,Urine 500 /ug (Negative); Nitrate,Urine NEG (Negative); Protein,Urine NEG (Negative); Specific Gravity,Urine 1.005 (1.000-1.035); Urine Hyaline Cast 3 /lph (0-2); Urine RBC 26 /hpf (0-3); Urine Squamous Epithelial Cell 0 /hpf (0-4); Urine WBC 39 /hpf (0-4); Urobilinogen,Urine NEG
[2020-07-07 12:46] LABS: Partial Thromboplastin Time 33.7 sec (20.0-37.0); Prothrombin Time 13.7 sec (11.9-14.5)
[2020-07-07 12:47] LABS: ALT/SGPT 10 U/L (<40); AST/SGOT 19 U/L (<40); Albumin 3.5 gm/dL (3.2-5.2); Alkaline Phosphatase 118 U/L (39-117); Bilirubin,Total 0.4 mg/dL (0.1-1.0); Blood Urea Nitrogen 16 mg/dL (8-23); Calcium 10.1 mg/dL (8.6-10.4); Carbon Dioxide 28 mmol/L (22-30); Chloride 85 mmol/L (96-108); Globulin 3.6 gm/dL (2.2-3.7); Glomerular Filtration Rate 45; Glucose 100 mg/dL (70-105)
[2020-07-07] MEDS ORDERED: POTASSIUM CHLORIDE 20 MEQ TABLET PO ONE ×2 (12:54→15:19)
[2020-07-07 13:03] LABS: Lymphocytes % 10 % (15-49); Microcytosis FEW (None Seen); Monocytes % (Manual) 5 % (1-12); Platelet Estimate INCREASED (Normal); RBC Morphology ABNORMAL (Normal); Segmented Neutrophils % 85 % (38-78)
--- NOTE | 2020-07-07 14:06 | Internal Med History&Physical ---
HPI History of Present Illness Patient information: Note initiated : 07/07/20 at 1:53 pm Service Date, if different from initiated Date: [] Patient: Primo Chen 74 y/o M admitted on for falls. Chief Complaint: [] History of present illness: Mr. Chen is a 74 year old M Who presents to the ED with weakness following dizziness. Patient was discharged on the and was admitted for hyponatremia weakness and falling and hypokalemia. It was planned for him to go to a SNF but he refused and patient went home. Like he is taking hydrochlorothiazide. In the ER looks like his creatinine was up elevated as well as his potassium being low. Head CT unremarkable chest unremarkable spine unremarkable. Does have a chronic Yu which she had for a week or so before he came in the first time. Follows with urology. Urinalysis with findings consistent with infection although he does have a Yu. He does say his Yu was changed when he was admitted last. Review of Systems: Pertinent positives as above plus chronic cough . denies headache /fever/chills/nausea/vomiting/chest or abdominal pain/diarrhea. Otherwise see above. PFSH PFSH All Active Problems (Updated 07/07/20 @ 13:40 by Varghese Traore MD) Hyponatremia (Acute) Fall (Acute) Head injury (Acute) Asthenia due to disease (Acute) UTI (urinary tract infection) (Acute) Hematuria (Acute) Acute hyponatremia (Acute) Weakness (Acute) Hypokalemia (Acute) Abnormal urinary stream (Acute) Urinary retention due to benign prostatic hyperplasia (Acute) General medical examination (Acute) Acute hypokalemia (Acute) Acute hypotension (Acute) Near syncope (Acute) BPH (benign prostatic hyperplasia) (Acute) Lung nodules (Chronic) Fracture of metacarpal (Acute) Nocturnal hypoxemia (Chronic) Dysphagia (Chronic) Gastroesophageal reflux disease (Chronic) Constipation (Chronic) Hyperlipidemia (Chronic) Cervical radiculopathy (Chronic) Hyponatremia (Acute) Acute exacerbation of chronic obstructive pulmonary disease (COPD) (Acute) Rectus sheath hematoma (Acute) 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 (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) Leukocytosis (Chronic) Chronic anemia (Chronic) Generalized seizure (Acute) Schizophrenia (Chronic) Astigmatism (Chronic) Chronic pain (Chronic) Chronic post-traumatic stress disorder (PTSD) (Chronic) Chronic obstructive pulmonary disease (Chronic) Hemoptysis (Chronic) Duodenitis (Chronic) Barretts esophagus (Chronic) Diverticulosis (Chronic) Colon polyp (Chronic) Chronic rhinitis (Chronic) Abdominal aneurysm without mention of rupture (Chronic) Sacroiliitis (Chronic) Neuropathy (Chronic) Benign paroxysmal positional vertigo (Chronic) Tremor (Chronic) Low blood pressure (Chronic) Small bowel obstruction (Chronic) Ptosis (Chronic) Other after-cataract, not obscuring vision (Chronic) Benign hypertension (Chronic) Upper respiratory infection (Chronic) Knee joint pain (Chronic) Lumbar radiculopathy (Chronic) History of fall (Chronic) Nicotine dependence (Chronic) Dizziness (Chronic) 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) SOB (shortness of breath) on exertion (Chronic) Stroke (Chronic) CAD (coronary artery disease) (Chronic) Falls (Chronic) Hematuria (Chronic) Neck pain (Chronic) Urinary retention (Chronic) Hip bursitis, left (Chronic) Community acquired pneumonia (Chronic) Smoker (Chronic) Peptic ulcer disease (Chronic) 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) Acute on chronic respiratory failure with hypoxemia (Chronic) Severe sepsis (Chronic) Tobacco abuse disorder (Chronic) Falls frequently (Chronic) Weakness generalized (Chronic) Pneumonia (Chronic) Weakness of both lower extremities (Chronic) Sepsis (Chronic) Cervical spondylosis with myelopathy and radiculopathy (Chronic) 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) Elevated serum creatinine (Chronic) Cervical spinal stenosis (Chronic) Abnormal urine color (Chronic) UTI (urinary tract infection) (Chronic) Medical History Abdominal aneurysm without mention of rupture Acute on chronic respiratory failure with hypoxemia Astigmatism Barretts esophagus Benign hypertension Benign paroxysmal positional vertigo CAD (coronary artery disease) Cervical radiculopathy Chronic anemia Chronic obstructive pulmonary disease Chronic pain Chronic post-traumatic stress disorder (PTSD) Chronic rhinitis Colon polyp Community acquired pneumonia Constipation COPD (chronic obstructive pulmonary disease) with chronic bronchitis Diverticulosis Dizziness Duodenitis Dysphagia Falls Falls frequently Gastroesophageal reflux disease Hematuria Hematuria Hemoptysis Hip bursitis, left History of fall Hyperlipidemia Knee joint pain Leukocytosis 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 Low blood pressure Lumbar radiculopathy Lumbar radiculopathy Lung nodules Nodule is stable 1 year f/u due 10/2020 Neck pain Neuropathy Nicotine dependence Nocturnal hypoxemia Other after-cataract, not obscuring vision Peptic ulcer disease Pneumonia Ptosis Recurrent major depression in remission Sacroiliitis Schizophrenia Sepsis Severe sepsis Small bowel obstruction Smoker SOB (shortness of breath) on exertion Stroke Tobacco abuse disorder Tremor Upper respiratory infection Urinary retention Weakness generalized Weakness of both lower extremities Surgical History History of angioplasty stent History of cholecystectomy History of colonoscopy History of hand surgery Broke left hand History of surgery had stomach aneurysm History of tonsillectomy Family History Other No pertinent family history Social History marital status: occupational status: retired and disabled smoking status: Current every day smoker tobacco type: cigarettes per day: 10 pack-years: 60 alcohol intake frequency: does not drink substance use type: does not use MEDS/ALLERGIES Home Medications and Allergies Home Medications Medication Instructions Recorded Confirmed Type albuterol sulfate 1 puff INH Q4-6HP PRN 12/27/14 06/26/20 History atorvastatin 40 mg PO HS 12/29/14 06/26/20 History cyanocobalamin (vitamin B-12) 500 mcg PO DAILY 12/29/14 06/26/20 History fluticasone propionate 2 spray NS DAILY 12/29/14 06/26/20 History mirtazapine 30 mg PO HS 12/29/14 06/26/20 History folic acid 1 mg PO DAILY #30 tab 01/07/15 06/26/20 Rx methocarbamol 750 mg PO TIDP PRN #15 tab 01/05/19 06/26/20 Rx acetaminophen 500 mg tablet 1,000 mg PO QID PRN 01/16/19 06/26/20 History amitriptyline 100 mg tablet 100 mg PO QHS 01/16/19 06/26/20 History aspirin 81 mg tablet,delayed 81 mg PO QDAY 01/16/19 06/26/20 History release benztropine 0.5 mg tablet 0.5 mg PO BID 01/16/19 06/26/20 History furosemide 20 mg tablet 20 mg PO QAM 01/16/19 06/26/20 History hydrochlorothiazide 12.5 mg tablet 12.5 mg PO QAM tab 01/16/19 06/26/20 History melatonin 3 mg capsule 6 mg PO HS cap 01/16/19 06/26/20 History montelukast 10 mg tablet 10 mg PO QPM 01/16/19 06/26/20 History multivitamin See Rx Instructions PO QDAY 01/16/19 06/26/20 History pantoprazole 40 mg tablet,delayed 40 mg PO BID 01/16/19 06/26/20 History release risperidone 3 mg tablet 3 mg PO QHS 01/16/19 06/26/20 History sennosides 8.6 mg tablet 8.6 mg PO BID 01/16/19 06/26/20 History tiotropium bromide 2.5 2 puff INHALATION QDAY 01/16/19 06/26/20 History mcg/actuation mist for inhalation clopidogrel 75 mg tablet 75 mg PO QAM tab 03/27/19 06/26/20 History lisinopril 5 mg tablet 2.5 mg PO QAM tab 12/03/19 06/26/20 History albuterol sulfate 2.5 mg INHALATION TID PRN #180 ml 01/07/20 06/26/20 Rx budesonide-formoterol HFA 160 2 puff INHALATION BID #10.2 g 01/07/20 06/26/20 Rx mcg-4.5 mcg/actuation aerosol inhaler finasteride 5 mg tablet 5 mg PO QDAY #90 tab 03/19/20 06/26/20 Rx tamsulosin 0.4 mg capsule 0.4 mg PO QHS #30 cap 06/19/20 06/26/20 Rx gabapentin 600 mg PO TID 06/23/20 06/26/20 History ibuprofen 400 mg PO TID 06/23/20 06/26/20 History levetiracetam [Keppra] 500 mg PO BID 06/23/20 06/26/20 History potassium chloride 10 meq PO QDAY 06/23/20 06/26/20 History terazosin 1 mg capsule 1 mg PO QDAY #21 cap 06/26/20 06/26/20 Rx Allergies Allergy/AdvReac Type Severity Reaction Status Date / Time aspirin [ASPIRIN] AdvReac Severe INTOLERANCE Verified 07/07/20 10:17 ONLY D/T ULCERS hydrocodone [HYDROCODONE] AdvReac Mild Sedation Verified 07/07/20 10:17 methadone [METHADONE] AdvReac Mild HALLUCINATI Verified 07/07/20 10:17 ONS morphine [MORPHINE] AdvReac Mild ITCHING Verified 07/07/20 10:17 oxycodone AdvReac Mild itchy Verified 07/07/20 10:17 EXAM Constitutional Vitals: Temp Pulse Resp BP Pulse Ox 97.6 F 85 24 H 106/68 97 07/07/20 10:12 07/07/20 13:40 07/07/20 13:40 07/07/20 13:31 07/07/20 13:40 Exam: General: Alert, Awake, No acute Distress Eyes/N/T: EOMI, PERRL, dry MM Head/Neck: neck supple, normocephalic atraumatic CV: RRR, No murmurs, normal s1/s2 Pulm: Mild bilateral expiratory wheezing, no rales Abd: soft, nontender, +BS x4 Ext: no clubbing/cyanosis/edema Neuro: Alert, no focal deficits, moves all extremities, CN 2-12 grossly intact, symmetrical strength b/l upper/lower, sensations intact b/l upper/lower Skin: warm/dry DATA Data Completed and Pending Labs: Labs from last 24 hours 07/07/20 07/07/20 07/07/20 11:49 11:49 11:49 WBC RBC Hgb Hct MCV MCH MCHC RDW Plt Count MPV Seg Neutrophils % Lymphocytes % Monocytes % (Manual) Platelet Estimate RBC Morphology Microcytosis PT INR APTT Sodium 124 L Potassium 3.1 L Chloride 85 L Carbon Dioxide 28 Anion Gap 11.0 BUN 16 Creatinine 1.5 H GFR Calculation 45 Glucose 100 Osmolality Pending Uric Acid Pending Calcium 10.1 Total Bilirubin 0.4 AST 19 ALT 10 Alkaline Phosphatase 118 H Troponin T < 0.01 Total Protein 7.1 Albumin 3.5 Globulin 3.6 Albumin/Globulin Ratio 1.0 TSH Pending Urine Color Urine Appearance Urine pH Ur Specific [place] Urine Protein Urine Glucose (UA) Urine Ketones Urine Occult Blood Urine Nitrate Urine Bilirubin Urine Urobilinogen Ur Leukocyte Esterase Urine RBC Urine WBC Ur Squamous Epith Cells Urine Bacteria Hyaline Casts Ur Culture Indicated? Urine Osmolality Ur Random Sodium 07/07/20 07/07/20 07/07/20 11:49 11:49 11:20 WBC 13.5 H RBC 3.96 L Hgb 10.2 L Hct 31.4 L MCV 79.3 L MCH 25.8 L MCHC 32.5 RDW 15.9 H Plt Count 549 H MPV 8.9 Seg Neutrophils % 85 H Lymphocytes % 10 L Monocytes % (Manual) 5 Platelet Estimate Increased A RBC Morphology Abnormal A Microcytosis Few A PT 13.7 INR 1.0 APTT 33.7 Sodium Potassium Chloride Carbon Dioxide Anion Gap BUN Creatinine GFR Calculation Glucose Osmolality Uric Acid Calcium Total Bilirubin AST ALT Alkaline Phosphatase Troponin T Total Protein Albumin Globulin Albumin/Globulin Ratio TSH Urine Color Urine Appearance Urine pH Ur Specific [place] Urine Protein Urine Glucose (UA) Urine Ketones Urine Occult Blood Urine Nitrate Urine Bilirubin Urine Urobilinogen Ur Leukocyte Esterase Urine RBC Urine WBC Ur Squamous Epith Cells Urine Bacteria Hyaline Casts Ur Culture Indicated? Urine Osmolality Pending Ur Random Sodium Pending 07/07/20 11:20 WBC RBC Hgb Hct MCV MCH MCHC RDW Plt Count MPV Seg Neutrophils % Lymphocytes % Monocytes % (Manual) Platelet Estimate RBC Morphology Microcytosis PT INR APTT Sodium Potassium Chloride Carbon Dioxide Anion Gap BUN Creatinine GFR Calculation Glucose Osmolality Uric Acid Calcium Total Bilirubin AST ALT Alkaline Phosphatase Troponin T Total Protein Albumin Globulin Albumin/Globulin Ratio TSH Urine Color Yellow Urine Appearance Hazy A Urine pH 7.0 Ur Specific [place] 1.005 Urine Protein Neg Urine Glucose (UA) Neg Urine Ketones Neg Urine Occult Blood 0.20 Urine Nitrate Neg Urine Bilirubin Neg Urine Urobilinogen Neg Ur Leukocyte Esterase 500 A Urine RBC 26 H Urine WBC 39 H Ur Squamous Epith Cells 0 Urine Bacteria Few A Hyaline Casts 3 H Ur Culture Indicated? yes Urine Osmolality Ur Random Sodium A/P Narrative A/P Narrative: A: *Hyponatremia, acute on chronic: Likely poor oral intake plus hydrochlorothiazide *Hypovolemia with elevated lactate: *Hypokalemia: 2/2 diuretics *TRAVIS on CKD III: *Anemia, chronic *UTI likely: does have yu that was changed last admit, follows with Urology. leukocytosis *h/o BPH/UR, Yu in place: follows with uroloyg *h/o schizophrenia: *COPD (2L@night and sometimes during day) *h/o CAD: on asa/plavix/statin *HTN: on lasiz/hctz/ACEI *h/o seizures: on keppra *GERD: P: -NS IVF, f/u sodium -urine studies to eval hyponatremia -replete electrolytes -rocephin, pending UC -hold lasix, d/c hctz forever, d/c NSAID -hold ACEI -cont asa/statin -home in [place], prn nebs, nocturnal O2, - -pt/ot -CM for placement -ppx: lovenox DNR Time Spent With Patient Time: Total time spent is greater than 50% in coordination of care (as documented) at patient's floor/unit and/or counseling patient:
[2020-07-07 14:36] LABS: Osmolality,Urine 206 mOSM/kg (80-1000)
[2020-07-07 14:42] LABS: Sodium, Urine Random 64 mmol/L
[2020-07-07 14:52] LABS: Thyroid Stimulating Hormone 2.67 uIU/mL (0.27-5.01); Uric Acid 9.9 mg/dL (2.5-8.0)
[2020-07-07] MEDS ORDERED: ONDANSETRON 4 MG/2 ML VIAL IV PRN (15:19)
[2020-07-07] MEDS ORDERED: IPRATROPIUM/ALBUTEROL 3 ML AMPUL.NEB NEB PRN (15:19)
[2020-07-07] MEDS ORDERED: METHOCARBAMOL 750 MG TABLET PO PRN (15:19)
[2020-07-07] MEDS ORDERED: POLYETHYLENE GLYCOL 3350 17 GM PACKET PO PRN (15:19)
[2020-07-07] MEDS ORDERED: cefTRIAXone 1 GM in DEXTROSE 5% IN WATER 50 ML IV SCH (15:19)
[2020-07-07] MEDS ORDERED: MAGNESIUM SULFATE 2 GM/50 ML BAG IV PRN (15:19)
[2020-07-07] MEDS ORDERED: ALBUTEROL SULFATE 200 PUFF INHALER INH PRN (15:19)
[2020-07-07] MEDS ORDERED: POTASSIUM CHLORIDE 20 MEQ TABLET PO PRN ×2 (15:19)
[2020-07-07] MEDS ORDERED: LACTULOSE 20 GM/30 ML ORAL.SOL PO PRN (15:19)
[2020-07-07] MEDS ORDERED: SENNOSIDES 1 TABLET PO PRN (15:19)
[2020-07-07] MEDS ORDERED: POTASSIUM CHLORIDE 40 MEQ in DEXTROSE 5% IN WATER 500 ML IV PRN (15:19)
[2020-07-07] MEDS ORDERED: IPRATROPIUM/ALBUTEROL 3 ML AMPUL.NEB NEB ONE (15:19)
[2020-07-07 15:45] LABS: POC Blood Urea Nitrogen 20 mg/dL (6-20); POC CO2 33 mmol/L (22-30); POC Calcium, Ionized 1.18 mmEq/L (1.16-1.32); POC Chloride 88 mEq/L (96-108); POC Creatinine 1.6 mg/dL (0.6-1.2); POC Glucose, Random 114 mg/dL (70-105); POC Hematocrit 33 % (41-55); POC Potassium 3.4 mEql/L (3.3-5.1); POC Sodium 127 mEq/L (133-145)
[2020-07-07 16:27] LABS: Blood Urea Nitrogen 17 mg/dL (8-23); Calcium 9.9 mg/dL (8.6-10.4); Carbon Dioxide 26 mmol/L (22-30); Chloride 86 mmol/L (96-108); Glomerular Filtration Rate 49; Glucose 109 mg/dL (70-105)
[2020-07-07] MEDS: 0.9 % SODIUM CHLORIDE 1,000 ML IV SCH ×2 (16:55→22:00)
[2020-07-07] MEDS: cefTRIAXone 1 GM VIAL IV SCH (16:55)
[2020-07-07] MEDS: PANTOPRAZOLE 40 MG TABLET PO SCH (16:56)
[2020-07-07] MEDS: AMITRIPTYLINE 25 MG TABLET PO SCH (20:21)
[2020-07-07] MEDS: SENNOSIDES 1 TABLET PO SCH (20:22)
[2020-07-07] MEDS: DOCUSATE SODIUM 100 MG CAPSULE PO SCH (20:22)
[2020-07-07] MEDS: GABAPENTIN 300 MG CAPSULE PO SCH (20:22)
[2020-07-07] MEDS: risperiDONE 1 MG TABLET PO SCH (20:23)
[2020-07-07] MEDS: TAMSULOSIN 0.4 MG CAPSULE PO SCH (20:23)
[2020-07-07] MEDS: levETIRAcetam 500 MG TABLET PO SCH (20:24)
[2020-07-07] MEDS: MIRTAZAPINE 15 MG TABLET PO SCH (20:24)
[2020-07-07] MEDS: BENZTROPINE 1 MG TABLET PO SCH (20:24)
[2020-07-07] MEDS: MONTELUKAST 10 MG TABLET PO SCH (20:24)
[2020-07-07] MEDS: ATORVASTATIN 40 MG TABLET PO SCH (20:24)
[2020-07-07] MEDS: Budesonide-Formoterol [Symbicort] 160-4.5 mcg Inhaler INH SCH (20:24)
[2020-07-07] MEDS: MELATONIN 3 MG TABLET PO SCH (20:24)
[2020-07-07] MEDS: 0.9 % SODIUM CHLORIDE 10 ML SYRINGE IV SCH (21:59)
[2020-07-08] MEDS: 0.9 % SODIUM CHLORIDE 10 ML SYRINGE IV SCH ×3 (06:11→21:23)
[2020-07-08 06:54] LABS: Basophils # (Auto) 0.06 K/mcL (0.00-0.20); Basophils % (Auto) 0.7 % (0.0-2.0); Eosinophils # (Auto) 0.13 K/mcL (0.00-0.70); Eosinophils % (Auto) 1.5 % (0.0-7.0); Hematocrit 28.8 % (41.0-55.0); Hemoglobin 9.1 g/dL (13.5-16.5); Lymphocytes # (Auto) 1.08 K/mcL (1.50-4.80); Lymphocytes % (Auto) 12.6 % (15.0-49.0); Mean Cell Volume 81.4 fL (80.0-100.0); Mean Corpuscular HGB Conc 31.6 g/dL (31.0-36.0); Mean Platelet Volume 9.1 fL (7.4-10.4); Monocytes # (Auto) 0.83 K/mcL (0.10-0.90); Monocytes % (Auto) 9.7 % (1.0-12.0); Neutrophils % (Auto) 75.5 % (38.0-78.0); Platelet Count 462 K/mcL (140-440); RBC 3.54 M/mcL (4.50-5.90); Red Cell Distribution Width 15.9 % (11.5-14.5); WBC 8.6 K/mcL (4.5-11.0)
[2020-07-08 07:14] LABS: ALT/SGPT 7 U/L (<40); AST/SGOT 15 U/L (<40); Alkaline Phosphatase 98 U/L (39-117); Bilirubin,Direct < 0.2 mg/dL (0-0.3); Bilirubin,Total 0.2 mg/dL (0.1-1.0); Blood Urea Nitrogen 14 mg/dL (8-23); Calcium 8.8 mg/dL (8.6-10.4); Carbon Dioxide 26 mmol/L (22-30); Chloride 94 mmol/L (96-108); Globulin 3.1 gm/dL (2.2-3.7); Glomerular Filtration Rate 59; Glucose 117 mg/dL (70-105); Lactate Dehydrogenase 140 U/L (135-225); Phosphorous 3.2 mg/dL (2.5-4.5); Triglycerides 104 mg/dL (<150); Uric Acid 8.7 mg/dL (2.5-8.0)
--- NOTE | 2020-07-08 07:25 | Internal Med Progress Note ---
SUBJECTIVE Subjective Patient information: Note initiated : 07/08/20 at 7:21 am Service Date, if different from initiated Date: [] Patient: Primo Chen 74 y/o M admitted on 07/07/20 for falls. Chief Complaint: [] Interval history: History of present illness: Mr. Chen is a 74 year old M Who presents to the ED with weakness following dizziness. Patient was discharged on the and was admitted for hyponatremia weakness and falling and hypokalemia. It was planned for him to go to a SNF but he refused and patient went home. Like he is taking hydrochlorothiazide. In the ER looks like his creatinine was up elevated as well as his potassium being low. Head CT unremarkable chest unremarkable spine unremarkable. Does have a chronic Yu which she had for a week or so before he came in the first time. Follows with urology. Urinalysis with findings consistent with infection although he does have a Yu. He does say his Yu was changed when he was admitted last. 07/08 Sodium improved potassium improved. Patient slept well and has no new complaints. He has a chronic cough. Review of Systems: denies headache/fever/chills/nausea/vomiting/chest or abdominal pain/dyspnea/diarrhea. Otherwise see above. Constitutional Vitals: Vital Signs Temp Pulse Resp BP Pulse Ox 98.7 F 83 16 115/71 97 07/08/20 03:54 07/08/20 03:54 07/08/20 03:54 07/08/20 03:54 07/08/20 03:54 Period Temp Pulse Resp BP Sys/Jerry Pulse Ox Last 24 Hr 97.6 F-98.7 F 80-98 13-29 87-126/50-80 92-99 Intake and Output 07/07/20 07/08/20 07/08/20 21:59 05:59 13:59 Intake Total 3080 537 3643 Output Total 750 1200 Balance 290 -750 1000 Weight 84.912 kg Intake & Output: Intake & Output 07/07/20 07/08/20 07/08/20 21:59 05:59 13:59 Intake Total 9196 868 9059 Output Total 750 1200 Balance 290 -750 1000 Weight 84.912 kg Intake: IV 600 1000 Sodium Chloride 0.9% 1,000 ml @ 600 1000 125 mls/hr IV .Q8H [facility] Rx#: [id number] Oral 440 450 Output: Urine Catheter Amount 750 1200 Other: Meal Dinner Percent of Meal Consumed 75% Feeding Ability Independent Urine Appearance Clear Clear Uretheral (Yu) Clear Sediment Urine Color Bright Yellow Bright Yellow Uretheral (Yu) Dark Yellow Urine Odor Strong Exam: General: Alert, Awake, No acute Distress Eyes/N/T: EOMI, Head/Neck: neck supple, CV: RRR, No murmurs, Pulm: minimal rhonchi,Mild bilateral expiratory wheezing, no rales Abd: soft, nontender, +BS x4 Ext: no clubbing/cyanosis/edema Neuro: Alert, no focal deficits, moves all extremities, Skin: warm/dry OBJ DATA Labs CBC & Chem 7: 07/08/20 05:40 07/08/20 05:40 Labs: Abnormal Lab Results 07/08/20 07/08/20 07/07/20 05:40 05:40 15:37 WBC RBC 3.54 L Hgb 9.1 L Hct 28.8 L POC Hct 33 L MCV MCH 25.7 L RDW 15.9 H Plt Count 462 H Lymph % (Auto) 12.6 L Lymph # (Auto) 1.08 L Seg Neutrophils % Lymphocytes % Platelet Estimate RBC Morphology Microcytosis POC Sodium 127 L Sodium 130 L 125 L Potassium POC Chloride 88 L Chloride 94 L 86 L POC Total CO2 33 H Creatinine 1.4 H POC Creatinine 1.6 H Glucose 117 H 109 H POC Glucose 114 H Osmolality Uric Acid 8.7 H Alkaline Phosphatase Albumin 3.0 L Urine Appearance Ur Leukocyte Esterase Urine RBC Urine WBC Urine Bacteria Hyaline Casts Ur Random Creatinine 07/07/20 07/07/20 07/07/20 11:49 11:49 11:49 WBC 13.5 H RBC 3.96 L Hgb 10.2 L Hct 31.4 L POC Hct MCV 79.3 L MCH 25.8 L RDW 15.9 H Plt Count 549 H Lymph % (Auto) Lymph # (Auto) Seg Neutrophils % 85 H Lymphocytes % 10 L Platelet Estimate Increased A RBC Morphology Abnormal A Microcytosis Few A POC Sodium Sodium 124 L Potassium 3.1 L POC Chloride Chloride 85 L POC Total CO2 Creatinine 1.5 H POC Creatinine Glucose POC Glucose Osmolality 266 L Uric Acid 9.9 H Alkaline Phosphatase 118 H Albumin Urine Appearance Ur Leukocyte Esterase Urine RBC Urine WBC Urine Bacteria Hyaline Casts Ur Random Creatinine 07/07/20 07/07/20 11:20 11:20 WBC RBC Hgb Hct POC Hct MCV MCH RDW Plt Count Lymph % (Auto) Lymph # (Auto) Seg Neutrophils % Lymphocytes % Platelet Estimate RBC Morphology Microcytosis POC Sodium Sodium Potassium POC Chloride Chloride POC Total CO2 Creatinine POC Creatinine Glucose POC Glucose Osmolality Uric Acid Alkaline Phosphatase Albumin Urine Appearance Hazy A Ur Leukocyte Esterase 500 A Urine RBC 26 H Urine WBC 39 H Urine Bacteria Few A Hyaline Casts 3 H Ur Random Creatinine 30.2 L Meds: Medications Acetaminophen (Acetaminophen 500 Mg Tablet) 1,000 mg PO QIDP PRN; Protocol PRN Reason: Pain Albuterol Sulfate (Albuterol Sulfate 200 Puff Inhaler) 1 puff INH Q4-6HP PRN PRN Reason: Shortness Of Breath Albuterol/Ipratropium (Ipratropium/Albuterol 3 Ml Ampul.Neb) 3 ml NEB Q4HP PRN PRN Reason: Shortness Of Breath Amitriptyline HCl (Amitriptyline 25 Mg Tablet) 100 mg PO [facility] Last Admin: 07/07/20 20:21 Dose: 100 mg Documented by: Aspirin (Aspirin 81 Mg Tab.Chew) 81 mg PO DAILY [facility] Atorvastatin Calcium (Atorvastatin 40 Mg Tablet) 40 mg PO [facility] Last Admin: 07/07/20 20:24 Dose: 40 mg Documented by: Benztropine Mesylate (Benztropine 1 Mg Tablet) 0.5 mg PO BID [facility] Last Admin: 07/07/20 20:24 Dose: 0.5 mg Documented by: Ceftriaxone Sodium (Ceftriaxone 1 Gm Vial) 1 gm IV Q24H [facility] Last Admin: 07/07/20 16:55 Dose: 1 gm Documented by: Clopidogrel Bisulfate (Clopidogrel 75 Mg Tablet) 75 mg PO QAM [facility] Docusate Sodium (Docusate Sodium 100 Mg Capsule) 100 mg PO BID [facility] Last Admin: 07/07/20 20:22 Dose: 100 mg Documented by: Enoxaparin Sodium (Enoxaparin 40 Mg/0.4 Ml Syringe) 40 mg SQ DAILY [facility] Finasteride (Finasteride 5 Mg Tablet) 5 mg PO QDAY [facility] Folic Acid (Folic Acid 1 Mg Tablet) 1 mg PO DAILY [facility] Gabapentin (Gabapentin 300 Mg Capsule) 600 mg PO TID [facility] Last Admin: 07/07/20 20:22 Dose: 600 mg Documented by: Potassium Chloride 40 meq/ (Dextrose) 520 mls @ 130 mls/hr IV UD PRN PRN Reason: Potassium < 3 Magnesium Sulfate (Magnesium Sulfate) 2 gm in 50 mls @ 50 mls/hr IV UD PRN PRN Reason: Magnesium </= 1.6 Lactulose (Lactulose 20 Gm/30 Ml Oral.Maricel) 20 gm PO DAILYP PRN PRN Reason: Constipation Levetiracetam (Levetiracetam 500 Mg Tablet) 500 mg PO BID [facility] Last Admin: 07/07/20 20:24 Dose: 500 mg Documented by: Melatonin (Melatonin 3 Mg Tablet) 6 mg PO [facility] Last Admin: 07/07/20 20:24 Dose: 6 mg Documented by: Methocarbamol (Methocarbamol 750 Mg Tablet) 750 mg PO TIDP PRN PRN Reason: Spasms Mirtazapine (Mirtazapine 15 Mg Tablet) 30 mg PO [facility] Last Admin: 07/07/20 20:24 Dose: 30 mg Documented by: Montelukast Sodium (Montelukast 10 Mg Tablet) 10 mg PO QPM [facility] Last Admin: 07/07/20 20:24 Dose: 10 mg Documented by: Ondansetron HCl (Ondansetron 4 Mg/2 Ml Vial) 4 mg IV Q4HP PRN PRN Reason: Nausea And Vomiting Pantoprazole Sodium (Pantoprazole 40 Mg Tablet) 40 mg PO BIDAC [facility] Last Admin: 07/07/20 16:56 Dose: 40 mg Documented by: Budesonide- Formoterol [ Symbicort] 160-4.5 Mcg Inhaler 2 dose INH BID [facility] Last Admin: 07/07/20 20:24 Dose: Not Given Documented by: Tiotropium [place] 2 .5 Mcg/Actuation Mist 2 dose INH QDAY [facility] Polyethylene Glycol (Polyethylene Glycol 3350 17 Gm Packet) 17 gm PO DAILYP PRN PRN Reason: Constipation Potassium Chloride (Potassium Chloride 10 Meq Tablet) 10 meq PO QAMCC [facility] Potassium Chloride (Potassium Chloride 20 Meq Tablet) 40 meq PO UD PRN PRN Reason: Potssium is 3-3.5 Potassium Chloride (Potassium Chloride 20 Meq Tablet) 40 meq PO UD PRN PRN Reason: Potassium < 3 Risperidone (Risperidone 1 Mg Tablet) 3 mg PO [facility] Last Admin: 07/07/20 20:23 Dose: 3 mg Documented by: Senna (Sennosides 1 Tablet) 1 tab PO BID [facility] Last Admin: 07/07/20 20:22 Dose: 1 tab Documented by: Sodium Chloride (0.9 % Sodium Chloride 10 Ml Syringe) 10 ml IV Q8 [facility] Last Admin: 07/08/20 06:11 Dose: 10 ml Documented by: Tamsulosin HCl (Tamsulosin 0.4 Mg Capsule) 0.4 mg PO QHS [facility] Last Admin: 07/07/20 20:23 Dose: 0.4 mg Documented by: Terazosin HCl (Terazosin 1 Mg Capsule) 1 mg PO QDAY [facility] A/P Narrative A/P Narrative: A: *Hyponatremia, acute on chronic: 2/2 poor oral intake plus hydrochlorothiazide -improved *Hypovolemia w/elevated lactate: *Hypokalemia: 2/2 diuretics , improved *TRAVIS on CKD III: resolved *Anemia, chronic *UTI: does have yu that was changed last admit, follows with Urology. leukocytosis *h/o BPH/UR, Yu in place: follows with uroloyg *h/o schizophrenia: *COPD (2L@night and sometimes during day) *h/o CAD: on asa/plavix/statin *HTN: on lasiz/hctz/ACEI *h/o seizures: on keppra *GERD: P: -NS IVF, -replete electrolytes -rocephin, pending UC -hold lasix, d/c hctz forever, d/c NSAID -hold ACEI -cont asa/statin -home in [place], prn nebs, nocturnal O2, - -pt/ot -CM for placement -ppx: lovenox DNR Time Spent With Patient Time: Total time spent is greater than 50% in coordination of care (as documented) at patient's floor/unit and/or counseling patient: QUALITY VTE Deep Vein Thrombosis/Pulmonary Embolism Present on Admission: No
[2020-07-08] MEDS: 0.9 % SODIUM CHLORIDE 500 ML IV SCH ×2 (07:51→15:03)
[2020-07-08] MEDS: PANTOPRAZOLE 40 MG TABLET PO SCH ×2 (07:51→16:36)
[2020-07-08] MEDS: levETIRAcetam 500 MG TABLET PO SCH ×2 (08:43→21:22)
[2020-07-08] MEDS: ASPIRIN 81 MG TAB.CHEW PO SCH (08:43)
[2020-07-08] MEDS: CLOPIDOGREL 75 MG TABLET PO SCH (08:43)
[2020-07-08] MEDS: TERAZOSIN 1 MG CAPSULE PO SCH (08:43)
[2020-07-08] MEDS: DOCUSATE SODIUM 100 MG CAPSULE PO SCH ×2 (08:43→21:21)
[2020-07-08] MEDS: FOLIC ACID 1 MG TABLET PO SCH (08:43)
[2020-07-08] MEDS: POTASSIUM CHLORIDE 10 MEQ TABLET PO SCH (08:44)
[2020-07-08] MEDS: ENOXAPARIN 40 MG/0.4 ML SYRINGE SQ SCH (08:44)
[2020-07-08] MEDS: SENNOSIDES 1 TABLET PO SCH ×2 (08:44→21:21)
[2020-07-08] MEDS: BENZTROPINE 1 MG TABLET PO SCH ×2 (08:44→21:23)
[2020-07-08] MEDS: ACETAMINOPHEN 500 MG TABLET PO PRN (08:45)
[2020-07-08] MEDS: GABAPENTIN 300 MG CAPSULE PO SCH ×3 (08:47→21:22)
[2020-07-08] MEDS: Tiotropium Bromide 2.5 mcg/actuation mist INH SCH (08:47)
[2020-07-08] MEDS: FINASTERIDE 5 MG TABLET PO SCH (08:47)
[2020-07-08] MEDS: Budesonide-Formoterol [Symbicort] 160-4.5 mcg Inhaler INH SCH ×2 (08:47→21:08)
[2020-07-08] MEDS: cefTRIAXone 1 GM VIAL IV SCH (08:52)
--- NOTE | 2020-07-08 10:16 | Discharge Summary ---
Discharge Provider Provider Patient information: Note initiated : 07/08/20 at 10:15 am Service Date, if different from initiated Date: [] Patient: Primo Chen 74 y/o M admitted on 07/07/20 for falls. Chief Complaint: [] Date of admission: 07/07/20 15:02 Primary care physician: Wolf Basurto PA-C Consults: 07/07/20 13:38 Consult to Physician [CONS] Stat Comment: Consulting Provider: Leandro Grewal Reason For Exam: Physician to Consult Discharge Meds Discharge Medications Home Medications albuterol sulfate 1 puff INH Q4-6HP PRN 12/27/14 [History Confirmed 07/07/20 Last Taken 10/20/19] atorvastatin 40 mg PO HS 12/29/14 [History Confirmed 07/07/20 Last Taken 10/20/19] cyanocobalamin (vitamin B-12) 500 mcg PO DAILY 12/29/14 [History Confirmed 07/07/20 Last Taken 10/20/19] fluticasone propionate 2 spray NS DAILY 12/29/14 [History Confirmed 07/07/20 Last Taken 10/20/19] mirtazapine 30 mg PO HS 12/29/14 [History Confirmed 07/07/20 Last Taken 10/20/19] folic acid 1 mg PO DAILY #30 tab 01/07/15 [Rx Confirmed 07/07/20 Last Taken 10/20/19] methocarbamol 750 mg PO TIDP PRN #15 tab 01/05/19 [Rx Confirmed 07/07/20 Last Taken 10/20/19] acetaminophen 500 mg tablet 1,000 mg PO QID PRN 01/16/19 [History Confirmed 07/07/20 Last Taken 10/20/19] amitriptyline 100 mg tablet 100 mg PO QHS 01/16/19 [History Confirmed 07/07/20 Last Taken 10/20/19] aspirin 81 mg tablet,delayed release 81 mg PO QDAY 01/16/19 [History Confirmed 07/07/20 Last Taken 10/20/19] benztropine 0.5 mg tablet 0.5 mg PO BID 01/16/19 [History Confirmed 07/07/20 Last Taken 10/20/19] melatonin 3 mg capsule 6 mg PO HS cap 01/16/19 [History Confirmed 07/07/20 Last Taken 10/20/19] montelukast 10 mg tablet 10 mg PO QPM 01/16/19 [History Confirmed 07/07/20 Last Taken 10/20/19] multivitamin See Rx Instructions PO QDAY 01/16/19 [History Confirmed 07/07/20 Last Taken 10/20/19] pantoprazole 40 mg tablet,delayed release 40 mg PO BID 01/16/19 [History Confirmed 07/07/20 Last Taken 10/20/19] risperidone 3 mg tablet 3 mg PO QHS 01/16/19 [History Confirmed 07/07/20 Last Taken 10/20/19] sennosides 8.6 mg tablet 8.6 mg PO BID 01/16/19 [History Confirmed 07/07/20 Last Taken 10/20/19] tiotropium bromide 2.5 mcg/actuation mist for inhalation 2 puff INHALATION QDAY 01/16/19 [History Confirmed 07/07/20 Last Taken 10/20/19] clopidogrel 75 mg tablet 75 mg PO QAM tab 03/27/19 [History Confirmed 07/07/20 Last Taken 10/15/19] lisinopril 5 mg tablet 2.5 mg PO QAM tab 12/03/19 [History Confirmed 07/07/20 Last Taken Unknown] albuterol sulfate 2.5 mg INHALATION TID PRN #180 ml 01/07/20 [Rx Confirmed 07/07/20 Last Taken Unknown] budesonide-formoterol HFA 160 mcg-4.5 mcg/actuation aerosol inhaler 2 puff INHALATION BID #10.2 g 01/07/20 [Rx Confirmed 07/07/20 Last Taken Unknown] finasteride 5 mg tablet 5 mg PO QDAY #90 tab 03/19/20 [Rx Confirmed 07/07/20 Last Taken Unknown] tamsulosin 0.4 mg capsule 0.4 mg PO QHS #30 cap 06/19/20 [Rx Confirmed 07/07/20 Last Taken Unknown] gabapentin 600 mg PO TID 06/23/20 [History Confirmed 07/07/20 Last Taken Unknown] levetiracetam [Keppra] 500 mg PO BID 06/23/20 [History Confirmed 07/07/20 Last Taken Unknown] potassium chloride 10 meq PO QDAY 06/23/20 [History Confirmed 07/07/20 Last Taken Unknown] terazosin 1 mg capsule 1 mg PO QDAY #21 cap 06/26/20 [Rx Confirmed 07/07/20 Last Taken Unknown] calcium carbonate-vitamin D2 1 tab PO BID 07/07/20 [History Confirmed 07/07/20 Last Taken Unknown] famotidine 40 mg PO QHS 07/07/20 [History Confirmed 07/07/20 Last Taken Unknown] COURSE Hospital Course Hospital course: History of present illness: Mr. Chen is a 74 year old M Who presents to the ED with weakness following dizziness. Patient was discharged on the and was admitted for hyponatremia weakness and falling and hypokalemia. It was planned for him to go to a SNF but he refused and patient went home. Like he is taking hydrochlorothiazide. In the ER looks like his creatinine was up elevated as well as his potassium being low. Head CT unremarkable chest unremarkable spine unremarkable. Does have a chronic Yu which she had for a week or so before he came in the first time. Follows with urology. Urinalysis with findings consistent with infection although he does have a Yu. He does say his Yu was changed when he was admitted last. 07/08 Sodium improved potassium improved. Patient slept well and has no new complaints. He has a chronic cough. A: *Hyponatremia, acute on chronic: 2/2 poor oral intake plus hydrochlorothiazide -improved *Hypovolemia w/elevated lactate: *Hypokalemia: 2/2 diuretics , improved *TRAVIS on CKD III: resolved *Anemia, chronic *UTI: does have yu that was changed last admit, follows with Urology. leukocytosis *h/o BPH/UR, Yu in place: follows with uroloyg *h/o schizophrenia: *COPD (2L@night and sometimes during day) *h/o CAD: on asa/plavix/statin *HTN: on lasiz/hctz/ACEI *h/o seizures: on keppra *GERD: Discharge diagnosis: Generalized weakness falls hyponatremia hypovolemia hypokalemia acute kidne Secondary discharge diagnosis: UTI BPH schizophrenia COPD CAD hypertension history of seizures GERD Time Spent with Patient Time attestation: Total time spent providing and/or coordinating discharge services: Time spent: Greater than 30 minutes EXAM Constitutional Vitals: Temp Pulse Resp BP Pulse Ox 97.8 F 88 18 115/69 94 07/08/20 07:00 07/08/20 08:00 07/08/20 08:00 07/08/20 07:00 07/08/20 08:00 Discharge Data Data Completed and Pending Labs on day of discharge: Labs from last 24 hours 07/08/20 07/08/20 07/07/20 05:40 05:40 15:37 WBC 8.6 RBC 3.54 L Hgb 9.1 L Hct 28.8 L POC Hct 33 L MCV 81.4 MCH 25.7 L MCHC 31.6 RDW 15.9 H Plt Count 462 H MPV 9.1 Neut % (Auto) 75.5 Lymph % (Auto) 12.6 L Sully % (Auto) 9.7 Eos % (Auto) 1.5 Baso % (Auto) 0.7 Lymph # (Auto) 1.08 L [place] # (Auto) 0.83 Eos # (Auto) 0.13 Baso # (Auto) 0.06 Seg Neutrophils % Lymphocytes % Monocytes % (Manual) Absolute Neutrophils 6.46 Platelet Estimate RBC Morphology Microcytosis PT INR APTT POC Sodium 127 L Sodium 130 L 125 L POC Potassium 3.4 Potassium 3.3 3.3 POC Chloride 88 L Chloride 94 L 86 L Carbon Dioxide 26 26 POC Total CO2 33 H Anion Gap 10.0 13.0 POC BUN 20 BUN 14 17 Creatinine 1.2 1.4 H POC Creatinine 1.6 H GFR Calculation 59 49 Glucose 117 H 109 H POC Glucose 114 H Osmolality Uric Acid 8.7 H Calcium 8.8 9.9 POC WB Ioniz Calcium 1.18 Phosphorus 3.2 Magnesium 1.9 Total Bilirubin 0.2 Direct Bilirubin < 0.2 GGT 27 AST 15 ALT 7 Alkaline Phosphatase 98 Lactate Dehydrogenase 140 Troponin T Total Protein 6.1 Albumin 3.0 L Globulin 3.1 Albumin/Globulin Ratio 1.0 Triglycerides 104 TSH Urine Color Urine Appearance Urine pH Ur Specific [place] Urine Protein Urine Glucose (UA) Urine Ketones Urine Occult Blood Urine Nitrate Urine Bilirubin Urine Urobilinogen Ur Leukocyte Esterase Urine RBC Urine WBC Ur Squamous Epith Cells Urine Bacteria Hyaline Casts Ur Culture Indicated? Urine Osmolality Ur Random Creatinine Ur Random Sodium Urine Urea Nitrogen 07/07/20 07/07/20 07/07/20 11:49 11:49 11:49 WBC RBC Hgb Hct POC Hct MCV MCH MCHC RDW Plt Count MPV Neut % (Auto) Lymph % (Auto) Sully % (Auto) Eos % (Auto) Baso % (Auto) Lymph # (Auto) Sully # (Auto) Eos # (Auto) Baso # (Auto) Seg Neutrophils % Lymphocytes % Monocytes % (Manual) Absolute Neutrophils Platelet Estimate RBC Morphology Microcytosis PT INR APTT POC Sodium Sodium POC Potassium Potassium POC Chloride Chloride Carbon Dioxide POC Total CO2 Anion Gap POC BUN BUN Creatinine POC Creatinine GFR Calculation Glucose POC Glucose Osmolality 266 L Uric Acid 9.9 H Calcium POC WB Ioniz Calcium Phosphorus Magnesium 2.0 Total Bilirubin Direct Bilirubin GGT AST ALT Alkaline Phosphatase Lactate Dehydrogenase Troponin T < 0.01 Total Protein Albumin Globulin Albumin/Globulin Ratio Triglycerides TSH 2.67 Urine Color Urine Appearance Urine pH Ur Specific [place] Urine Protein Urine Glucose (UA) Urine Ketones Urine Occult Blood Urine Nitrate Urine Bilirubin Urine Urobilinogen Ur Leukocyte Esterase Urine RBC Urine WBC Ur Squamous Epith Cells Urine Bacteria Hyaline Casts Ur Culture Indicated? Urine Osmolality Ur Random Creatinine Ur Random Sodium Urine Urea Nitrogen 07/07/20 07/07/20 07/07/20 11:49 11:49 11:49 WBC 13.5 H RBC 3.96 L Hgb 10.2 L Hct 31.4 L POC Hct MCV 79.3 L MCH 25.8 L MCHC 32.5 RDW 15.9 H Plt Count 549 H MPV 8.9 Neut % (Auto) Lymph % (Auto) Sully % (Auto) Eos % (Auto) Baso % (Auto) Lymph # (Auto) S[place] # (Auto) Eos # (Auto) Baso # (Auto) Seg Neutrophils % 85 H Lymphocytes % 10 L Monocytes % (Manual) 5 Absolute Neutrophils Platelet Estimate Increased A RBC Morphology Abnormal A Microcytosis Few A PT 13.7 INR 1.0 APTT 33.7 POC Sodium Sodium 124 L POC Potassium Potassium 3.1 L POC Chloride Chloride 85 L Carbon Dioxide 28 POC Total CO2 Anion Gap 11.0 POC BUN BUN 16 Creatinine 1.5 H POC Creatinine GFR Calculation 45 Glucose 100 POC Glucose Osmolality Uric Acid Calcium 10.1 POC WB Ioniz Calcium Phosphorus Magnesium Total Bilirubin 0.4 Direct Bilirubin GGT AST 19 ALT 10 Alkaline Phosphatase 118 H Lactate Dehydrogenase Troponin T Total Protein 7.1 Albumin 3.5 Globulin 3.6 Albumin/Globulin Ratio 1.0 Triglycerides TSH Urine Color Urine Appearance Urine pH Ur Specific [place] Urine Protein Urine Glucose (UA) Urine Ketones Urine Occult Blood Urine Nitrate Urine Bilirubin Urine Urobilinogen Ur Leukocyte Esterase Urine RBC Urine WBC Ur Squamous Epith Cells Urine Bacteria Hyaline Casts Ur Culture Indicated? Urine Osmolality Ur Random Creatinine Ur Random Sodium Urine Urea Nitrogen 07/07/20 07/07/20 07/07/20 11:20 11:20 11:20 WBC RBC Hgb Hct POC Hct MCV MCH MCHC RDW Plt Count MPV Neut % (Auto) Lymph % (Auto) Sully % (Auto) Eos % (Auto) Baso % (Auto) Lymph # (Auto) Sully # (Auto) Eos # (Auto) Baso # (Auto) Seg Neutrophils % Lymphocytes % Monocytes % (Manual) Absolute Neutrophils Platelet Estimate RBC Morphology Microcytosis PT INR APTT POC Sodium Sodium POC Potassium Potassium POC Chloride Chloride Carbon Dioxide POC Total CO2 Anion Gap POC BUN BUN Creatinine POC Creatinine GFR Calculation Glucose POC Glucose Osmolality Uric Acid Calcium POC WB Ioniz Calcium Phosphorus Magnesium Total Bilirubin Direct Bilirubin GGT AST ALT Alkaline Phosphatase Lactate Dehydrogenase Troponin T Total Protein Albumin Globulin Albumin/Globulin Ratio Triglycerides TSH Urine Color Urine Appearance Urine pH Ur Specific [place] Urine Protein Urine Glucose (UA) Urine Ketones Urine Occult Blood Urine Nitrate Urine Bilirubin Urine Urobilinogen Ur Leukocyte Esterase Urine RBC Urine WBC Ur Squamous Epith Cells Urine Bacteria Hyaline Casts Ur Culture Indicated? Urine Osmolality 206 Ur Random Creatinine 30.2 L Ur Random Sodium 64 Urine Urea Nitrogen < 112 07/07/20 11:20 WBC RBC Hgb Hct POC Hct MCV MCH MCHC RDW Plt Count MPV Neut % (Auto) Lymph % (Auto) S[place] % (Auto) Eos % (Auto) Baso % (Auto) Lymph # (Auto) [place] # (Auto) Eos # (Auto) Baso # (Auto) Seg Neutrophils % Lymphocytes % Monocytes % (Manual) Absolute Neutrophils Platelet Estimate RBC Morphology Microcytosis PT INR APTT POC Sodium Sodium POC Potassium Potassium POC Chloride Chloride Carbon Dioxide POC Total CO2 Anion Gap POC BUN BUN Creatinine POC Creatinine GFR Calculation Glucose POC Glucose Osmolality Uric Acid Calcium POC WB Ioniz Calcium Phosphorus Magnesium Total Bilirubin Direct Bilirubin GGT AST ALT Alkaline Phosphatase Lactate Dehydrogenase Troponin T Total Protein Albumin Globulin Albumin/Globulin Ratio Triglycerides TSH Urine Color Yellow Urine Appearance Hazy A Urine pH 7.0 Ur Specific [place] 1.005 Urine Protein Neg Urine Glucose (UA) Neg Urine Ketones Neg Urine Occult Blood 0.20 Urine Nitrate Neg Urine Bilirubin Neg Urine Urobilinogen Neg Ur Leukocyte Esterase 500 A Urine RBC 26 H Urine WBC 39 H Ur Squamous Epith Cells 0 Urine Bacteria Few A Hyaline Casts 3 H Ur Culture Indicated? yes Urine Osmolality Ur Random Creatinine Ur Random Sodium Urine Urea Nitrogen Discharge Plan Patient/Caregiver Discharge Instructions Activity: increase activity as tolerated Diet: Dysphagia Level 5 Minced & Moist Foods Prescriptions: Continued albuterol sulfate 2.5 mg /3 mL (0.083 %) solution for nebulization 2.5 mg INHALATION TID PRN (Reason: shortness of breath or wheezing) Qty: 180 RF: 2 budesonide-formoterol [Symbicort] 160-4.5 mcg/actuation HFA aerosol inhaler 2 puff INHALATION BID Qty: 10.2 RF: 6 tamsulosin 0.4 mg capsule 0.4 mg PO QHS Qty: 30 RF: 1 amitriptyline 100 mg tablet 100 mg tablet 100 mg PO QHS RF: 0 aspirin [Adult Low Dose Aspirin] 81 mg tablet,delayed release (DR/EC) 81 mg PO QDAY RF: 0 benztropine 0.5 mg tablet 0.5 mg PO BID RF: 0 melatonin 3 mg capsule 6 mg PO HS RF: 0 montelukast 10 mg tablet 10 mg PO QPM RF: 0 multivitamin See Rx Instructions PO QDAY RF: 0 pantoprazole 40 mg tablet,delayed release (DR/EC) 40 mg PO BID RF: 0 risperidone 3 mg tablet 3 mg PO QHS RF: 0 sennosides [Evac-U-Gen (sennosides)] 8.6 mg tablet 8.6 mg PO BID RF: 0 tiotropium bromide 2.5 mcg/actuation mist 2 puff INHALATION QDAY RF: 0 acetaminophen 500 mg tablet 1,000 mg PO QID PRN (Reason: Pain) RF: 0 clopidogrel 75 mg tablet 75 mg PO QAM RF: 0 lisinopril 5 mg tablet 2.5 mg PO QAM RF: 0 albuterol sulfate 1 PUFF inhaler 1 puff INH Q4-6HP PRN (Reason: Shortness Of Breath) RF: 0 atorvastatin 40 MG tablet 40 mg PO HS RF: 0 cyanocobalamin (vitamin B-12) 500 MCG tablet 500 mcg PO DAILY RF: 0 mirtazapine 30 MG tablet 30 mg PO HS RF: 0 fluticasone propionate 1 SPRAY spray,suspension 2 spray NS DAILY RF: 0 folic acid 1 MG tablet 1 mg PO DAILY Qty: 30 RF: 0 methocarbamol 750 MG tablet 750 mg PO TIDP PRN (Reason: Spasms) Qty: 15 RF: 0 potassium chloride 10 mEq Capsule, Extended Release 10 meq PO QDAY RF: 0 levetiracetam [Keppra] 500 mg Tablet 500 mg PO BID RF: 0 gabapentin 600 mg Tablet 600 mg PO TID RF: 0 famotidine 40 mg Tablet 40 mg PO QHS RF: 0 calcium carbonate-vitamin D2 600 mg calcium- 200 unit Tablet 1 tab PO BID RF: 0 finasteride 5 mg tablet 5 mg PO QDAY Qty: 90 RF: 3 terazosin 1 mg capsule 1 mg PO QDAY Qty: 21 RF: 0 Discontinued furosemide 20 mg tablet 20 mg PO QAM RF: 0 hydrochlorothiazide 12.5 mg tablet 12.5 mg tablet 12.5 mg PO QAM RF: 0 ibuprofen 400 mg Tablet 400 mg PO TID RF: 0 Follow Up Plan Follow up with: Wolf Basurto PA-C [Primary Care Provider] - Patient Disposition: Home Health Service Prognosis: Fair Overall status at discharge: patient is progressing back to baseline QUALITY VTE Deep Vein Thrombosis/Pulmonary Embolism Present on Admission: No
[2020-07-08] MEDS: AMITRIPTYLINE 25 MG TABLET PO SCH (21:21)
[2020-07-08] MEDS: TAMSULOSIN 0.4 MG CAPSULE PO SCH (21:21)
[2020-07-08] MEDS: MIRTAZAPINE 15 MG TABLET PO SCH (21:21)
[2020-07-08] MEDS: MONTELUKAST 10 MG TABLET PO SCH (21:22)
[2020-07-08] MEDS: risperiDONE 1 MG TABLET PO SCH (21:22)
[2020-07-08] MEDS: ATORVASTATIN 40 MG TABLET PO SCH (21:22)
[2020-07-08] MEDS: MELATONIN 3 MG TABLET PO SCH (21:22)
[2020-07-09] MEDS: 0.9 % SODIUM CHLORIDE 10 ML SYRINGE IV SCH ×5 (05:56→20:46)
--- NOTE | 2020-07-09 07:49 | Internal Med Progress Note ---
SUBJECTIVE Subjective Patient information: Note initiated : 07/09/20 at 7:47 am Service Date, if different from initiated Date: [] Patient: Primo Chen 74 y/o M admitted on 07/07/20 for falls. Chief Complaint: [] Interval history: History of present illness: Mr. Chen is a 74 year old M Who presents to the ED with weakness following dizziness. Patient was discharged on the and was admitted for hyponatremia weakness and falling and hypokalemia. It was planned for him to go to a SNF but he refused and patient went home. Like he is taking hydrochlorothiazide. In the ER looks like his creatinine was up elevated as well as his potassium being low. Head CT unremarkable chest unremarkable spine unremarkable. Does have a chronic Yu which she had for a week or so before he came in the first time. Follows with urology. Urinalysis with findings consistent with infection although he does have a Yu. He does say his Yu was changed when he was admitted last. 07/08 Sodium improved potassium improved. Patient slept well and has no new complaints. He has a chronic cough. 07/09 No overnight event or new complaints. Urine cultures gram-negative bacillus. Review of Systems: denies headache/fever/chills/nausea/vomiting/chest or abdominal pain/dyspnea/diarrhea. Otherwise see above. Constitutional Vitals: Vital Signs Temp Pulse Resp BP Pulse Ox 98.5 F 88 20 128/70 94 07/09/20 03:53 07/09/20 03:53 07/09/20 03:53 07/09/20 03:53 07/09/20 03:53 Period Temp Pulse Resp BP Sys/Jerry Pulse Ox Last 24 Hr 97.5 F-98.5 F 74-93 16-20 101-128/50-71 92-97 Intake and Output 07/08/20 07/09/20 07/09/20 21:59 05:59 13:59 Intake Total 1540 240 Output Total 800 1750 Balance 740 -1510 Weight 86.545 kg Intake & Output: Intake & Output 07/08/20 07/09/20 07/09/20 21:59 05:59 13:59 Intake Total 1540 240 Output Total 800 1750 Balance 740 -1510 Weight 86.545 kg Intake: IV 500 Sodium Chloride 0.9% 500 ml @ 500 75 mls/hr IV .Q6H40M [facility] Rx#: [id number] Oral 1040 240 Output: Urine Catheter Amount 800 1750 Other: Meal Dinner tuna sandwich Percent of Meal Consumed 75% 100% Urine Appearance Uretheral (Yu) Clear Urine Color Dark Yellow Uretheral (Yu) Dark Yellow Exam: General: Alert, Awake, No acute Distress Eyes/N/T: EOMI, Head/Neck: neck supple, CV: RRR, No murmurs, Pulm: no wheezing, no rales Abd: soft, nontender, +BS x4 Ext: no clubbing/cyanosis/edema Neuro: Alert, no focal deficits, moves all extremities, Skin: warm/dry OBJ DATA Labs CBC & Chem 7: 07/08/20 05:40 07/08/20 05:40 Labs: Abnormal Lab Results 07/08/20 07/08/20 07/07/20 05:40 05:40 15:37 WBC RBC 3.54 L Hgb 9.1 L Hct 28.8 L POC Hct 33 L MCV MCH 25.7 L RDW 15.9 H Plt Count 462 H Lymph % (Auto) 12.6 L Lymph # (Auto) 1.08 L Seg Neutrophils % Lymphocytes % Platelet Estimate RBC Morphology Microcytosis POC Sodium 127 L Sodium 130 L 125 L Potassium POC Chloride 88 L Chloride 94 L 86 L POC Total CO2 33 H Creatinine 1.4 H POC Creatinine 1.6 H Glucose 117 H 109 H POC Glucose 114 H Osmolality Uric Acid 8.7 H Alkaline Phosphatase Albumin 3.0 L Urine Appearance Ur Leukocyte Esterase Urine RBC Urine WBC Urine Bacteria Hyaline Casts Ur Random Creatinine 07/07/20 07/07/20 07/07/20 11:49 11:49 11:49 WBC 13.5 H RBC 3.96 L Hgb 10.2 L Hct 31.4 L POC Hct MCV 79.3 L MCH 25.8 L RDW 15.9 H Plt Count 549 H Lymph % (Auto) Lymph # (Auto) Seg Neutrophils % 85 H Lymphocytes % 10 L Platelet Estimate Increased A RBC Morphology Abnormal A Microcytosis Few A POC Sodium Sodium 124 L Potassium 3.1 L POC Chloride Chloride 85 L POC Total CO2 Creatinine 1.5 H POC Creatinine Glucose POC Glucose Osmolality 266 L Uric Acid 9.9 H Alkaline Phosphatase 118 H Albumin Urine Appearance Ur Leukocyte Esterase Urine RBC Urine WBC Urine Bacteria Hyaline Casts Ur Random Creatinine 07/07/20 07/07/20 11:20 11:20 WBC RBC Hgb Hct POC Hct MCV MCH RDW Plt Count Lymph % (Auto) Lymph # (Auto) Seg Neutrophils % Lymphocytes % Platelet Estimate RBC Morphology Microcytosis POC Sodium Sodium Potassium POC Chloride Chloride POC Total CO2 Creatinine POC Creatinine Glucose POC Glucose Osmolality Uric Acid Alkaline Phosphatase Albumin Urine Appearance Hazy A Ur Leukocyte Esterase 500 A Urine RBC 26 H Urine WBC 39 H Urine Bacteria Few A Hyaline Casts 3 H Ur Random Creatinine 30.2 L Meds: Medications Acetaminophen (Acetaminophen 500 Mg Tablet) 1,000 mg PO QIDP PRN; Protocol PRN Reason: Pain Last Admin: 07/08/20 08:45 Dose: 1,000 mg Documented by: Albuterol Sulfate (Albuterol Sulfate 200 Puff Inhaler) 1 puff INH Q4-6HP PRN PRN Reason: Shortness Of Breath Albuterol/Ipratropium (Ipratropium/Albuterol 3 Ml Ampul.Neb) 3 ml NEB Q4HP PRN PRN Reason: Shortness Of Breath Last Admin: 07/08/20 09:14 Dose: 3 ml Documented by: Amitriptyline HCl (Amitriptyline 25 Mg Tablet) 100 mg PO [facility] Last Admin: 07/08/20 21:21 Dose: 100 mg Documented by: Aspirin (Aspirin 81 Mg Tab.Chew) 81 mg PO DAILY [facility] Last Admin: 07/08/20 08:43 Dose: 81 mg Documented by: Atorvastatin Calcium (Atorvastatin 40 Mg Tablet) 40 mg PO [facility] Last Admin: 07/08/20 21:22 Dose: 40 mg Documented by: Benztropine Mesylate (Benztropine 1 Mg Tablet) 0.5 mg PO BID [facility] Last Admin: 07/08/20 21:23 Dose: 0.5 mg Documented by: Ceftriaxone Sodium (Ceftriaxone 1 Gm Vial) 1 gm IV Q24H [facility] Last Admin: 07/08/20 08:52 Dose: 1 gm Documented by: Clopidogrel Bisulfate (Clopidogrel 75 Mg Tablet) 75 mg PO QAM [facility] Last Admin: 07/08/20 08:43 Dose: 75 mg Documented by: Docusate Sodium (Docusate Sodium 100 Mg Capsule) 100 mg PO BID [facility] Last Admin: 07/08/20 21:21 Dose: 100 mg Documented by: Enoxaparin Sodium (Enoxaparin 40 Mg/0.4 Ml Syringe) 40 mg SQ DAILY [facility] Last Admin: 07/08/20 08:44 Dose: 40 mg Documented by: Finasteride (Finasteride 5 Mg Tablet) 5 mg PO QDAY [facility] Last Admin: 07/08/20 08:47 Dose: 5 mg Documented by: Folic Acid (Folic Acid 1 Mg Tablet) 1 mg PO DAILY [facility] Last Admin: 07/08/20 08:43 Dose: 1 mg Documented by: Gabapentin (Gabapentin 300 Mg Capsule) 600 mg PO TID [facility] Last Admin: 07/08/20 21:22 Dose: 600 mg Documented by: Potassium Chloride 40 meq/ (Dextrose) 520 mls @ 130 mls/hr IV UD PRN PRN Reason: Potassium < 3 Magnesium Sulfate (Magnesium Sulfate) 2 gm in 50 mls @ 50 mls/hr IV UD PRN PRN Reason: Magnesium </= 1.6 Lactulose (Lactulose 20 Gm/30 Ml Oral.Maricel) 20 gm PO DAILYP PRN PRN Reason: Constipation Levetiracetam (Levetiracetam 500 Mg Tablet) 500 mg PO BID [facility] Last Admin: 07/08/20 21:22 Dose: 500 mg Documented by: Melatonin (Melatonin 3 Mg Tablet) 6 mg PO [facility] Last Admin: 07/08/20 21:22 Dose: 6 mg Documented by: Methocarbamol (Methocarbamol 750 Mg Tablet) 750 mg PO TIDP PRN PRN Reason: Spasms Mirtazapine (Mirtazapine 15 Mg Tablet) 30 mg PO [facility] Last Admin: 07/08/20 21:21 Dose: 30 mg Documented by: Montelukast Sodium (Montelukast 10 Mg Tablet) 10 mg PO QPM [facility] Last Admin: 07/08/20 21:22 Dose: 10 mg Documented by: Ondansetron HCl (Ondansetron 4 Mg/2 Ml Vial) 4 mg IV Q4HP PRN PRN Reason: Nausea And Vomiting Pantoprazole Sodium (Pantoprazole 40 Mg Tablet) 40 mg PO BIDAC [facility] Last Admin: 07/08/20 16:36 Dose: 40 mg Documented by: Budesonide- Formoterol [ Symbicort] 160-4.5 Mcg Inhaler 2 dose INH BID [facility] Last Admin: 07/08/20 21:08 Dose: Not Given Documented by: Tiotropium [place] 2 .5 Mcg/Actuation Mist 2 dose INH QDAY [facility] Last Admin: 07/08/20 08:47 Dose: Not Given Documented by: Polyethylene Glycol (Polyethylene Glycol 3350 17 Gm Packet) 17 gm PO DAILYP PRN PRN Reason: Constipation Potassium Chloride (Potassium Chloride 10 Meq Tablet) 10 meq PO QAMCC [facility] Last Admin: 07/08/20 08:44 Dose: 10 meq Documented by: Potassium Chloride (Potassium Chloride 20 Meq Tablet) 40 meq PO UD PRN PRN Reason: Potssium is 3-3.5 Last Admin: 07/08/20 12:49 Dose: 40 meq Documented by: Potassium Chloride (Potassium Chloride 20 Meq Tablet) 40 meq PO UD PRN PRN Reason: Potassium < 3 Risperidone (Risperidone 1 Mg Tablet) 3 mg PO HS [facility] Last Admin: 07/08/20 21:22 Dose: 3 mg Documented by: Senna (Sennosides 1 Tablet) 1 tab PO BID [facility] Last Admin: 07/08/20 21:21 Dose: 1 tab Documented by: Sodium Chloride (0.9 % Sodium Chloride 10 Ml Syringe) 10 ml IV Q8 [facility] Last Admin: 07/09/20 05:56 Dose: 10 ml Documented by: Tamsulosin HCl (Tamsulosin 0.4 Mg Capsule) 0.4 mg PO QHS [facility] Last Admin: 07/08/20 21:21 Dose: 0.4 mg Documented by: Terazosin HCl (Terazosin 1 Mg Capsule) 1 mg PO QDAY [facility] Last Admin: 07/08/20 08:43 Dose: 1 mg Documented by: A/P Narrative A/P Narrative: A: *Hyponatremia, acute on chronic: 2/2 poor oral intake plus hydrochlorothiazide -improved *Hypovolemia w/elevated lactate: *Hypokalemia: 2/2 diuretics , improved *TRAVIS on CKD III: resolved *Anemia, chronic *UTI(GNB): does have yu that was changed last admit, follows with Urology. leukocytosis *h/o BPH/UR, Yu in place: follows with urology *h/o schizophrenia: *COPD (2L@night and sometimes during day) *h/o CAD: on asa/plavix/statin *HTN: on lasiz/hctz/ACEI *h/o seizures: on keppra *GERD: P: -rocephin, pending UC -hold lasix, d/c hctz forever, d/c NSAID -hold ACEI -cont asa/statin -home in [facility], prn nebs, nocturnal O2, - -pt/ot -CM for placement -ppx: lovenox DNR Time Spent With Patient Time: Total time spent is greater than 50% in coordination of care (as documented) at patient's floor/unit and/or counseling patient: QUALITY VTE Deep Vein Thrombosis/Pulmonary Embolism Present on Admission: No
[2020-07-09] MEDS: DOCUSATE SODIUM 100 MG CAPSULE PO SCH ×2 (07:55→19:04)
[2020-07-09] MEDS: CLOPIDOGREL 75 MG TABLET PO SCH (07:55)
[2020-07-09] MEDS: ENOXAPARIN 40 MG/0.4 ML SYRINGE SQ SCH (07:55)
[2020-07-09] MEDS: TERAZOSIN 1 MG CAPSULE PO SCH (07:56)
[2020-07-09] MEDS: SENNOSIDES 1 TABLET PO SCH ×2 (07:56→19:05)
[2020-07-09] MEDS: levETIRAcetam 500 MG TABLET PO SCH ×2 (07:56→19:04)
[2020-07-09] MEDS: GABAPENTIN 300 MG CAPSULE PO SCH ×3 (07:56→19:04)
[2020-07-09] MEDS: BENZTROPINE 1 MG TABLET PO SCH ×2 (07:56→19:05)
[2020-07-09] MEDS: FOLIC ACID 1 MG TABLET PO SCH (07:56)
[2020-07-09] MEDS: PANTOPRAZOLE 40 MG TABLET PO SCH ×2 (07:56→16:07)
[2020-07-09] MEDS: ASPIRIN 81 MG TAB.CHEW PO SCH (07:56)
[2020-07-09] MEDS: POTASSIUM CHLORIDE 10 MEQ TABLET PO SCH (07:56)
[2020-07-09] MEDS: FINASTERIDE 5 MG TABLET PO SCH (07:56)
[2020-07-09] MEDS: Budesonide-Formoterol [Symbicort] 160-4.5 mcg Inhaler INH SCH ×2 (07:57→19:06)
[2020-07-09] MEDS: Tiotropium Bromide 2.5 mcg/actuation mist INH SCH (07:57)
[2020-07-09] MEDS: cefTRIAXone 1 GM VIAL IV SCH (08:02)
[2020-07-09 12:11] LABS: Blood Urea Nitrogen 10 mg/dL (8-23); Calcium 9.6 mg/dL (8.6-10.4); Carbon Dioxide 30 mmol/L (22-30); Chloride 100 mmol/L (96-108); Glomerular Filtration Rate 66; Glucose 119 mg/dL (70-105)
[2020-07-09] MEDS: CIPROFLOXACIN 500 MG TABLET PO SCH (19:03)
[2020-07-09] MEDS: AMITRIPTYLINE 25 MG TABLET PO SCH (19:03)
[2020-07-09] MEDS: TAMSULOSIN 0.4 MG CAPSULE PO SCH (19:04)
[2020-07-09] MEDS: MONTELUKAST 10 MG TABLET PO SCH (19:04)
[2020-07-09] MEDS: risperiDONE 1 MG TABLET PO SCH (19:04)
[2020-07-09] MEDS: MELATONIN 3 MG TABLET PO SCH (19:04)
[2020-07-09] MEDS: ATORVASTATIN 40 MG TABLET PO SCH (19:04)
[2020-07-09] MEDS: MIRTAZAPINE 15 MG TABLET PO SCH (19:04)
[2020-07-09] MEDS: ACETAMINOPHEN 500 MG TABLET PO PRN (19:13)
[2020-07-10] MEDS: 0.9 % SODIUM CHLORIDE 10 ML SYRINGE IV SCH ×2 (05:26→12:44)
[2020-07-10] MEDS: POTASSIUM CHLORIDE 10 MEQ TABLET PO SCH (07:16)
[2020-07-10] MEDS: PANTOPRAZOLE 40 MG TABLET PO SCH (07:16)
[2020-07-10] MEDS: Tiotropium Bromide 2.5 mcg/actuation mist INH SCH (08:55)
[2020-07-10] MEDS: Budesonide-Formoterol [Symbicort] 160-4.5 mcg Inhaler INH SCH (08:55)
[2020-07-10] MEDS: CIPROFLOXACIN 500 MG TABLET PO SCH (09:01)
[2020-07-10] MEDS: FOLIC ACID 1 MG TABLET PO SCH (09:01)
[2020-07-10] MEDS: BENZTROPINE 1 MG TABLET PO SCH (09:01)
[2020-07-10] MEDS: SENNOSIDES 1 TABLET PO SCH (09:01)
[2020-07-10] MEDS: ENOXAPARIN 40 MG/0.4 ML SYRINGE SQ SCH (09:02)
[2020-07-10] MEDS: DOCUSATE SODIUM 100 MG CAPSULE PO SCH (09:02)
[2020-07-10] MEDS: TERAZOSIN 1 MG CAPSULE PO SCH (09:02)
[2020-07-10] MEDS: FINASTERIDE 5 MG TABLET PO SCH (09:02)
[2020-07-10] MEDS: GABAPENTIN 300 MG CAPSULE PO SCH ×2 (09:02→15:09)
[2020-07-10] MEDS: CLOPIDOGREL 75 MG TABLET PO SCH (09:03)
[2020-07-10] MEDS: ASPIRIN 81 MG TAB.CHEW PO SCH (09:03)
[2020-07-10] MEDS: levETIRAcetam 500 MG TABLET PO SCH (09:03)
[2020-07-10 09:11] LABS: Basophils # (Auto) 0.08 K/mcL (0.00-0.20); Basophils % (Auto) 0.9 % (0.0-2.0); Eosinophils # (Auto) 0.03 K/mcL (0.00-0.70); Eosinophils % (Auto) 0.3 % (0.0-7.0); Hematocrit 28.3 % (41.0-55.0); Hemoglobin 8.7 g/dL (13.5-16.5); Lymphocytes # (Auto) 1.01 K/mcL (1.50-4.80); Lymphocytes % (Auto) 11.1 % (15.0-49.0); Mean Cell Volume 82.7 fL (80.0-100.0); Mean Corpuscular HGB Conc 30.7 g/dL (31.0-36.0); Mean Platelet Volume 9.1 fL (7.4-10.4); Monocytes # (Auto) 0.75 K/mcL (0.10-0.90); Monocytes % (Auto) 8.3 % (1.0-12.0); Neutrophils % (Auto) 79.4 % (38.0-78.0); Platelet Count 442 K/mcL (140-440); RBC 3.42 M/mcL (4.50-5.90); Red Cell Distribution Width 16.4 % (11.5-14.5); WBC 9.1 K/mcL (4.5-11.0)
[2020-07-10 12:29] LABS: ALT/SGPT 8 U/L (<40); AST/SGOT 11 U/L (<40); Albumin 3.4 gm/dL (3.2-5.2); Albumin/Globulin Ratio 1.4 (1.0-2.3); Alkaline Phosphatase 91 U/L (39-117); Bilirubin,Total 0.2 mg/dL (0.1-1.0); Blood Urea Nitrogen 14 mg/dL (8-23); Calcium 9.4 mg/dL (8.6-10.4); Carbon Dioxide 24 mmol/L (22-30); Chloride 106 mmol/L (96-108); Globulin 2.5 gm/dL (2.2-3.7); Glomerular Filtration Rate 54; Glucose 131 mg/dL (70-105)
--- NOTE | 2020-07-10 13:53 | Discharge Summary ---
Discharge Provider Provider Patient information: Note initiated : 07/10/20 at 1:47 pm Service Date, if different from initiated Date: [] Patient: Primo Chen 74 y/o M admitted on 07/07/20 for falls. Chief Complaint: [UTI and hyponatremia] Date of admission: 07/07/20 15:02 Discharge date: 07/10/20 Primary care physician: Wolf Basurto PA-C Consults: 07/07/20 13:38 Consult to Physician [CONS] Stat Comment: Consulting Provider: Leandro Grewal Reason For Exam: Physician to Consult Discharge Meds Discharge Medications Home Medications albuterol sulfate 1 puff INH Q4-6HP PRN 12/27/14 [History Confirmed 07/07/20 Last Taken 10/20/19] atorvastatin 40 mg PO HS 12/29/14 [History Confirmed 07/07/20 Last Taken 10/20/19] cyanocobalamin (vitamin B-12) 500 mcg PO DAILY 12/29/14 [History Confirmed 07/07/20 Last Taken 10/20/19] fluticasone propionate 2 spray NS DAILY 12/29/14 [History Confirmed 07/07/20 Last Taken 10/20/19] mirtazapine 30 mg PO HS 12/29/14 [History Confirmed 07/07/20 Last Taken 10/20/19] folic acid 1 mg PO DAILY #30 tab 01/07/15 [Rx Confirmed 07/07/20 Last Taken 10/20/19] methocarbamol 750 mg PO TIDP PRN #15 tab 01/05/19 [Rx Confirmed 07/07/20 Last Taken 10/20/19] acetaminophen 500 mg tablet 1,000 mg PO QID PRN 01/16/19 [History Confirmed 07/07/20 Last Taken 10/20/19] amitriptyline 100 mg tablet 100 mg PO QHS 01/16/19 [History Confirmed 07/07/20 Last Taken 10/20/19] aspirin 81 mg tablet,delayed release 81 mg PO QDAY 01/16/19 [History Confirmed 07/07/20 Last Taken 10/20/19] benztropine 0.5 mg tablet 0.5 mg PO BID 01/16/19 [History Confirmed 07/07/20 Last Taken 10/20/19] melatonin 3 mg capsule 6 mg PO HS cap 01/16/19 [History Confirmed 07/07/20 Last Taken 10/20/19] montelukast 10 mg tablet 10 mg PO QPM 01/16/19 [History Confirmed 07/07/20 Last Taken 10/20/19] multivitamin See Rx Instructions PO QDAY 01/16/19 [History Confirmed 07/07/20 Last Taken 10/20/19] pantoprazole 40 mg tablet,delayed release 40 mg PO BID 01/16/19 [History Confirmed 07/07/20 Last Taken 10/20/19] risperidone 3 mg tablet 3 mg PO QHS 01/16/19 [History Confirmed 07/07/20 Last Taken 10/20/19] sennosides 8.6 mg tablet 8.6 mg PO BID 01/16/19 [History Confirmed 07/07/20 Last Taken 10/20/19] tiotropium bromide 2.5 mcg/actuation mist for inhalation 2 puff INHALATION QDAY 01/16/19 [History Confirmed 07/07/20 Last Taken 10/20/19] clopidogrel 75 mg tablet 75 mg PO QAM tab 03/27/19 [History Confirmed 07/07/20 Last Taken 10/15/19] albuterol sulfate 2.5 mg INHALATION TID PRN #180 ml 01/07/20 [Rx Confirmed 07/07/20 Last Taken Unknown] budesonide-formoterol HFA 160 mcg-4.5 mcg/actuation aerosol inhaler 2 puff I NHALATION BID #10.2 g 01/07/20 [Rx Confirmed 07/07/20 Last Taken Unknown] finasteride 5 mg tablet 5 mg PO QDAY #90 tab 03/19/20 [Rx Confirmed 07/07/20 Last Taken Unknown] tamsulosin 0.4 mg capsule 0.4 mg PO QHS #30 cap 06/19/20 [Rx Confirmed 07/07/20 Last Taken Unknown] gabapentin 600 mg PO TID 06/23/20 [History Confirmed 07/07/20 Last Taken Unknown] levetiracetam [Keppra] 500 mg PO BID 06/23/20 [History Confirmed 07/07/20 Last Taken Unknown] potassium chloride 10 meq PO QDAY 06/23/20 [History Confirmed 07/07/20 Last Taken Unknown] terazosin 1 mg capsule 1 mg PO QDAY #21 cap 06/26/20 [Rx Confirmed 07/07/20 Last Taken Unknown] calcium carbonate-vitamin D2 1 tab PO BID 07/07/20 [History Confirmed 07/07/20 Last Taken Unknown] famotidine 40 mg PO QHS 07/07/20 [History Confirmed 07/07/20 Last Taken Unknown] ciprofloxacin HCl 500 mg PO BID #14 tab 07/10/20 [Rx Last Taken Unknown] COURSE Hospital Course Hospital course: Patient was admitted with UTI and hyponatremia. After blood and urine cultures were collected, patient was started on IV fluid as well as IV antibiotics Rocephin. Later on urine culture grew Enterobacter Cloacae Complex. Antibiotics was being changed to oral Ciprofloxacin. His serum sodium level gradually improved back to normal level. By 07/10/20 patient had been afebrile for more than 24 hours, leukocytosis resolved, and otherwise reach clinical stability. As such, the decision was made to discharge him home with Rx Ciprofloxacin sent to pharmacy. HCTZ, Lisinopril, Lasix, and NSAIDs were being held for the moment. All questions were answered prior to patient being physically discharged. Discharge diagnosis: UTI Time Spent with Patient Time attestation: Total time spent providing and/or coordinating discharge services: Time spent: Less than 30 minutes EXAM Constitutional Vitals: Temp Pulse Resp BP Pulse Ox 36.6 C 98 H 16 137/60 95 07/10/20 11:00 07/10/20 11:00 07/10/20 11:00 07/10/20 11:00 07/10/20 11:00 General appearance: cooperative and no acute distress Head Head exam: Present atraumatic and normocephalic Eye Eye exam: Present EOMI and PERRL ENT ENT exam: Present mucous membranes moist, normal exam and normal external ear exam Neck Neck exam: Present normal inspection; Absent lymphadenopathy, tenderness and thyromegaly Respiratory Respiratory exam: Absent accessory muscle use, respiratory distress and wheezes Cardiovascular Cardiovascular exam: Present normal rate and rhythm; Absent JVD GI/Abdominal GI/Abdominal exam: Present normal bowel sounds and soft; Absent organomegaly and tenderness Rectal Rectal exam: Present deferred Additional comments: Killian catheter in place. Extremities Exam Extremities exam: Present full ROM, normal capillary refill and normal inspection; Absent tenderness Neurological Exam Neurological exam: Present alert, CN II-XII intact and oriented X3; Absent motor sensory deficit Psychiatric Psychiatric exam: Present normal affect and normal mood; Absent anxious and depressed Skin Skin exam: Present dry and intact Discharge Data Data Completed and Pending Labs on day of discharge: Labs from last 24 hours 07/10/20 07/10/20 06:20 06:20 WBC 9.1 RBC 3.42 L Hgb 8.7 L Hct 28.3 L MCV 82.7 MCH 25.4 L MCHC 30.7 L RDW 16.4 H Plt Count 442 H MPV 9.1 Neut % (Auto) 79.4 H Lymph % (Auto) 11.1 L Russell % (Auto) 8.3 Eos % (Auto) 0.3 Baso % (Auto) 0.9 Lymph # (Auto) 1.01 L Russell # (Auto) 0.75 Eos # (Auto) 0.03 Baso # (Auto) 0.08 Absolute Neutrophils 7.19 Sodium 141 Potassium 4.1 Chloride 106 Carbon Dioxide 24 Anion Gap 11.0 BUN 14 Creatinine 1.3 H GFR Calculation 54 Glucose 131 H Calcium 9.4 Total Bilirubin 0.2 AST 11 ALT 8 Alkaline Phosphatase 91 Total Protein 5.9 Albumin 3.4 Globulin 2.5 Albumin/Globulin Ratio 1.4 Discharge Plan Patient/Caregiver Discharge Instructions Activity: increase activity as tolerated Diet: Dysphagia Level 5 Minced & Moist Foods Activity Restrictions/Additional Instructions: 2 week PCP follow up appointment Prescriptions: New ciprofloxacin HCl 500 mg Tablet 500 mg PO BID Qty: 14 RF: 0 Continued albuterol sulfate 2.5 mg /3 mL (0.083 %) solution for nebulization 2.5 mg INHALATION TID PRN (Reason: shortness of breath or wheezing) Qty: 180 RF: 2 budesonide-formoterol [Symbicort] 160-4.5 mcg/actuation HFA aerosol inhaler 2 puff INHALATION BID Qty: 10.2 RF: 6 tamsulosin 0.4 mg capsule 0.4 mg PO QHS Qty: 30 RF: 1 amitriptyline 100 mg tablet 100 mg tablet 100 mg PO QHS RF: 0 aspirin [Adult Low Dose Aspirin] 81 mg tablet,delayed release (DR/EC) 81 mg PO QDAY RF: 0 benztropine 0.5 mg tablet 0.5 mg PO BID RF: 0 melatonin 3 mg capsule 6 mg PO HS RF: 0 montelukast 10 mg tablet 10 mg PO QPM RF: 0 multivitamin See Rx Instructions PO QDAY RF: 0 pantoprazole 40 mg tablet,delayed release (DR/EC) 40 mg PO BID RF: 0 risperidone 3 mg tablet 3 mg PO QHS RF: 0 sennosides [Evac-U-Gen (sennosides)] 8.6 mg tablet 8.6 mg PO BID RF: 0 tiotropium bromide 2.5 mcg/actuation mist 2 puff INHALATION QDAY RF: 0 acetaminophen 500 mg tablet 1,000 mg PO QID PRN (Reason: Pain) RF: 0 clopidogrel 75 mg tablet 75 mg PO QAM RF: 0 albuterol sulfate 1 PUFF inhaler 1 puff INH Q4-6HP PRN (Reason: Shortness Of Breath) RF: 0 atorvastatin 40 MG tablet 40 mg PO HS RF: 0 cyanocobalamin (vitamin B-12) 500 MCG tablet 500 mcg PO DAILY RF: 0 mirtazapine 30 MG tablet 30 mg PO HS RF: 0 fluticasone propionate 1 SPRAY spray,suspension 2 spray NS DAILY RF: 0 folic acid 1 MG tablet 1 mg PO DAILY Qty: 30 RF: 0 methocarbamol 750 MG tablet 750 mg PO TIDP PRN (Reason: Spasms) Qty: 15 RF: 0 potassium chloride 10 mEq Capsule, Extended Release 10 meq PO QDAY RF: 0 levetiracetam [Keppra] 500 mg Tablet 500 mg PO BID RF: 0 gabapentin 600 mg Tablet 600 mg PO TID RF: 0 famotidine 40 mg Tablet 40 mg PO QHS RF: 0 calcium carbonate-vitamin D2 600 mg calcium- 200 unit Tablet 1 tab PO BID RF: 0 finasteride 5 mg tablet 5 mg PO QDAY Qty: 90 RF: 3 terazosin 1 mg capsule 1 mg PO QDAY Qty: 21 RF: 0 Discontinued furosemide 20 mg tablet 20 mg PO QAM RF: 0 hydrochlorothiazide 12.5 mg tablet 12.5 mg tablet 12.5 mg PO QAM RF: 0 lisinopril 5 mg tablet 2.5 mg PO QAM RF: 0 ibuprofen 400 mg Tablet 400 mg PO TID RF: 0 Follow Up Plan Follow up with: Wolf Basurto PA-C [Primary Care Provider] - Patient Disposition: Home Health Service Prognosis: Fair Rehab Potential: Good Overall status at discharge: patient is progressing back to baseline Discharge Orders: Discharge Order (Routine); Ordered 07/10/20 Ordered By: Facundo Curtis QUALITY VTE Deep Vein Thrombosis/Pulmonary Embolism Present on Admission: No
== END 2020-07-10 15:22 | disposition home health service (06) | DRG 641 ==
LOC: ED 10:08 → MEDSUR 15:02
PROVIDERS: ADMIT Internal Medicine; ATTEND Internal Medicine